=== PATIENT | female | born 1990 | race Caucasian/White ===

== ENCOUNTER 2022-04-25 09:18 | Emergency (ER) | payer BC, SELFPAY ==
[2022-04-25 10:05] VITALS: BP 125/81; PULSE 74; RESP 20; TEMP 36.4; O2SAT 98; BMI 29.7
--- NOTE | 2022-04-25 10:35 | EXP.UTC ---
Discharge Plan Disposition Patient Disposition: Home, Self-Care Condition: Good Prescriptions Prescriptions: New amoxicillin 500 mg capsule 500 mg PO TID 10 Days Qty: 30 0RF Referrals Follow up/Referrals: Provider,Referral, MD [Primary Care Provider] - See instructions Activity Restrictions/Add. Instructions Additional Instructions/Restrictions: Take medication as prescribed Over the counter Motrin and/or Tylenol may help with fever and pain Follow up with your Family Doctor if no improvement or any worsening of symptoms Straight to ER if any life threatening symptoms Clinical Impressions Clinical Impression: Otitis media Stand Alone Forms Stand Alone Forms: Work/School Release Instructions Patient Instructions: Middle Ear Infection, Amoxicillin Discharge ED Provider: Billie Garzon [facility] General Stated complaint: Rt ear pain, congestion, cough Mode of Arrival: Ambulatory Source of Information: Patient Limitations: No Limitations Time Seen by Provider: 04/25/22 10:35 Description of Symptoms (Recalled from Triage Doc. by RN): PATIENT C/O COUGH SINCE LAST WEEK, CONGESTION AND RIGHT EAR PAIN SINCE THIS MORNING HEENT Symptoms (Recalled from RN notes): Yes Resp Symptoms (Recalled from RN notes): Yes Skin Symptoms (Recalled from RN notes): No MS Symptoms (Recalled from RN notes): No Functional Status (Recalled from RN notes): WNL History of Present Illness Provider Complaint: Mother state that she started last week with cough, nasal congestion and she has been having pain in her right ear for the last couple of days that is worse this morning States that her ear was hurting bad so she came in to get it checked Related Data Previous Rx's Medication Instructions Recorded amoxicillin 500 mg capsule 500 mg PO TID 10 days #30 caps 04/25/22 Allergies Allergy/AdvReac Type Severity Reaction Status Date / Time NO KNOWN ALLERGIES Allergy Uncoded 01/27/17 15:09 Worker's Comp Is this a Worker's Comp case?: No [facility] Disclaimer: The information contained in this section may have been updated after the patient was seen, as this information can be updated by other users. Social History Smoking Status: Unknown if ever smoked alcohol intake: never current occupational status: other Travel in the last 8 weeks: None ROS Obtained: Yes All systems reviewed & no additional complaints except as documented and Yes Systems reviewed as appropriate & no additional complaints except as documented Constitutional Constitutional: Reports system reviewed and no additional complaints, except as documented and Reports as per HPI ENT Ears, Nose, Mouth, and Throat: Reports system reviewed and no additional complaints, except as documented, Reports as per HPI, Reports otalgia and Reports nasal congestion Cardiovascular Cardiovascular: Reports system reviewed and no additional complaints, except as documented and Reports as per HPI Respiratory Respiratory: Reports system reviewed and no additional complaints, except as documented, Reports as per HPI and Reports cough Gastrointestinal Gastrointestingal: Reports system reviewed and no additional complaints, except as documented and as per HPI Physical Exam General General appearance: alert and in no apparent distress Expanded ENT Exam TM/Canal exam: Right TM: erythema and bulging Respiratory Respiratory exam: Present normal lung sounds bilaterally; Absent respiratory distress or wheezes Cardiovascular Cardiovascular exam: Present regular rate, normal rhythm and normal heart sounds Abdominal Exam Abdominal exam: Present soft and normal bowel sounds; Absent distention or tenderness Neurological Exam Neurological exam: Present alert, oriented X3 and normal gait Medical Decision Making Jose Martin Inquiry Pt receiving controlled substance: No Jose Martin was queried for this patient: No Vital Signs: 04/25/22 10:05 Temperature 97.5 F L Temperature Source Oral
[2022-04-25 10:51] VITALS: BP 125/81; PULSE 74; RESP 20; TEMP 36.4; O2SAT 98
== END 2022-04-25 11:01 | disposition home or self-care (01) ==
PROVIDERS: Emergency Provider Nurse Practitioner
DX: H66.91 Otitis media, unspecified, right ear (principal); R05.1 Acute cough
CPT/HCPCS: 99212; 99214; G0463

== ENCOUNTER → 2022-11-12 12:00 | Outpatient (CLI) | payer BC, SELFPAY ==
[2022-11-12 18:16] LABS: Microscopic, Urine URINE MICROSCOPIC (MICROSCOPIC)
[2022-11-12 18:33] LABS: Basophils % 0.4 % (0.1-2.0); Eosinophils # 0.3 K/mm3 (0.0-0.4); Eosinophils % 2.8 % (0.1-12.0); Hematocrit 42.6 % (37.0-47.0); Hemoglobin 13.5 g/dL (12.2-16.2); Lymphocytes # 2.4 K/mm3 (0.7-4.5); Lymphocytes % 25.7 % (10-50); Mean Corpuscular HGB Conc 31.7 g/dL (31.8-35.4); Mean Corpuscular Volume 88.1 fl (81-99); Mean Platelet Volume 8.5 fl (7.4-10.4); Monocytes # 0.3 K/mm3 (0.1-1.0); Monocytes % 3.4 % (1.7-9.3); Neutrophils # 6.3 K/mm3 (1.8-7.8); Neutrophils % 67.7 % (37.0-80.0); Platelet Count 501 K/mm3 (142-424); Red Blood Count 4.83 M/mm3 (4.20-5.40); Red Cell Distribution Width 13.3 % (11.5-17.5); White Blood Count 9.4 K/mm3 (4.8-10.8)
[2022-11-12 18:49] LABS: Appearance,Urine CLEAR (Clear); Bilirubin,Urine Negative (Negative); Blood, Urine TRACE-I (Negative); Color,Urine YELLOW (Yellow); Glucose,Urine (UA) Negative (Negative); Ketones,Urine Negative (Negative); Leukocyte Esterase,Urine TRACE (Negative); Nitrate,Urine Negative (Negative); Protein,Urine Negative (Negative); Urobilinogen,Urine 0.2 EU/dl (0.2)
[2022-11-12 18:55] LABS: Alanine Aminotransferase 17 U/L (12-78); Albumin Level 4.1 g/dl (3.5-5.0); Albumin/Globulin Ratio 1.3 (1.1-1.8); Alkaline Phosphatase 65 U/L (38-126); Anion Gap 13.4 mEq/L (5-15); Aspartate Amino Transferase 26 U/L (14-36); Bilirubin,Total 0.2 mg/dl (0.2-1.3); Blood Urea Nitrogen 5 mg/dl (7-17); Calcium 9.3 mg/dl (8.4-10.2); Carbon Dioxide 28 mmol/L (22.0-30.0); Chloride 104 mmol/L (98-107); Cholesterol 186 mg/dl (140-200); Estimated Glomerular Filt Rate 117 ml/min (>60); GFR (African American) 142 ML/MIN (>60); Globulin 3.2 g/dL (1.3-3.2); Glucose 109 mg/dl (74-100); HDL Cholesterol 61 mg/dl (40-60); Potassium 4.4 mmoL/L (3.5-5.1); Sodium 141 mmol/L (136-145); Total Protein,Serum 7.3 g/dl (6.3-8.2); Triglycerides 114 mg/dl (30-150); VLDL Cholesterol 23 mg/dL (0-40)
[2022-11-12 19:02] LABS: Squamous Epithelial Cell,Urine Occasional #/hpf (0-5)
[2022-11-12 19:02] LABS: Erythrocyte Sedimentation Rate 21 mm/hr (0-20)
[2022-11-12 19:07] LABS: Direct LDL Cholesterol 104.95 mg/dL (100-129)
[2022-11-12 19:09] LABS: Free T4 (Free Thyroxine) 1.08 ng/dl (0.78-2.19)
[2022-11-12 19:11] LABS: 25-OH Vitamin D, Total 25.7 ng/mL (30-100)
[2022-11-12 19:24] LABS: Thyroid Stimulating Hormone 1.41 uIU/mL (0.465-4.68)
[2022-11-12 19:43] LABS: Vitamin B12 197 pg/mL (239-931)
[2022-11-15 00:07] LABS: Neisseria gonorrhoeae, NAA Negative (Negative)
[2022-11-18 12:44] LABS: Immunoglobulin E, Total 38
[2022-11-18 12:45] LABS: D001-IgE D pteronyssinus <0.10; D002-IgE D farinae <0.10; E001-IgE Cat Dander 2.86; E005-IgE Dog Dander 0.13; G002-IgE Bermuda Grass 1.71
[2022-11-18 12:46] LABS: I006-IgE Cockroach, German <0.10; M001-IgE Penicillium chrysogen <0.10; M002-IgE Cladosporium herbarum <0.10; M003-IgE Aspergillus fumigatus <0.10; M006-IgE Alternaria alternata <0.10
[2022-11-18 12:47] LABS: T001-IgE Maple/Box Elder 0.29; T006-IgE Cedar, Mountain 0.13
[2022-11-18 12:48] LABS: T007-IgE Oak, White 0.35; T008-IgE Elm, American 0.38; T010-IgE Walnut 0.82
[2022-11-18 12:49] LABS: T014-IgE Cottonwood 0.25; T022-IgE Pecan, Hickory 1.17
[2022-11-18 12:50] LABS: W001-IgE Ragweed, Short 8.72; W011-IgE Thistle, Russian 0.47; W014-IgE Pigweed, Common 0.39
[2022-11-18 12:51] LABS: E072-IgE Mouse Urine <0.10
[2022-11-20 08:07] LABS: C-Reactive Protein 18.8 mg/L (0-4)
== END ==
LOC: LAB.DROPOF 11-13 01:53
PROVIDERS: PCP Nurse Practitioner Family; Visit Provider Nurse Practitioner Family
DX: Z00.00 Encounter for general adult medical examination without abnormal findings (principal); R53.83 Other fatigue; Z13.1 Encounter for screening for diabetes mellitus; Z11.3 Encounter for screening for infections with a predominantly sexual mode of transmission; Z13.220 Encounter for screening for lipoid disorders; R07.81 Pleurodynia; J30.2 Other seasonal allergic rhinitis; E55.9 Vitamin D deficiency, unspecified; Z91.09 Other allergy status, other than to drugs and biological substances; Z79.899 Other long term (current) drug therapy
CPT/HCPCS: 80053; 80061; 81001; 82306; 82607; 82785; 83036; 84439; 84443; 85025; 85651; 86003; 86140; 87086; 87491; 87591

== ENCOUNTER → 2022-11-13 09:00 | Outpatient (CLI) | payer BC, SELFPAY ==
--- NOTE | 2022-11-13 09:05 | XR_ITS ---
FINAL REPORT CLINICAL HISTORY: hx of scoliosis as a child COMPARISON: None FINDINGS: SCOLIOSIS EVALUATION 3 views of the thoracolumbar spine were obtained. There is 10 degrees of levoscoliosis centered at L1. There are no vertebral anomalies. IMPRESSION: Thoracolumbar scoliosis as above. Reviewed, Interpreted and Dictated by Radames Jimenez III, MD Transcribed by Nola Nina Authenticated and [facility]
--- NOTE | 2022-11-13 09:05 | XR_ITS ---
FINAL REPORT CLINICAL HISTORY: right rib pain COMPARISON: None FINDINGS: Two views of the chest were obtained. The heart size and pulmonary vascularity are within normal limits. The mediastinum is normal. No acute pulmonary abnormality is identified. There is no pneumothorax. The bony thorax is intact. IMPRESSION: No active cardiopulmonary disease. Reviewed, Interpreted and Dictated by Radames Jimenez III, MD Transcribed by Nola Nina Authenticated and [facility]
== END ==
LOC: LAB 09:01
PROVIDERS: PCP Nurse Practitioner Family; Visit Provider Nurse Practitioner Family
DX: R07.81 Pleurodynia (principal); M41.9 Scoliosis, unspecified
CPT/HCPCS: 71046; 72081

== ENCOUNTER → 2022-11-27 09:56 | Outpatient (CLI) | payer BC, SELFPAY ==
--- NOTE | 2022-11-27 09:59 | XR_ITS ---
FINAL REPORT CLINICAL HISTORY: Left wrist pain COMPARISON: None FINDINGS: LEFT WRIST Three views demonstrate no acute fracture or dislocation. The visualized joint spaces are normally aligned. The soft tissues are unremarkable. No evidence of bony erosions are seen. Bone mineralization is unremarkable. IMPRESSION: No acute bony abnormality. Reviewed, Interpreted and Dictated by Radames Jimenez III, MD Transcribed by Bhargavi Fenton Authenticated and [facility]
--- NOTE | 2022-11-27 09:59 | XR_ITS ---
FINAL REPORT CLINICAL HISTORY: right wrist pain COMPARISON: None FINDINGS: RIGHT WRIST Three views demonstrate no acute fracture or dislocation. The visualized joint spaces are normally aligned. The soft tissues are unremarkable. No bony erosions are identified. Bony mineralization is unremarkable. IMPRESSION: No acute bony abnormality. Reviewed, Interpreted and Dictated by Radames Jimenez III, MD Transcribed by Bhargavi Fenton Authenticated and [facility]
--- NOTE | 2022-11-27 10:17 | XR_ITS ---
FINAL REPORT CLINICAL HISTORY: pain COMPARISON: None FINDINGS: RIGHT HAND: 3 views of the right hand were obtained. There is no acute fracture or dislocation. Visualized joint spaces are normally aligned. Soft tissues are unremarkable. No bony erosions are identified. Bone mineralization is unremarkable. IMPRESSION: No acute bony abnormality. Reviewed, Interpreted and Dictated by Radames Jimenez III, MD Transcribed by Bhargavi Fenton Authenticated and [facility]
--- NOTE | 2022-11-27 10:17 | XR_ITS ---
FINAL REPORT CLINICAL HISTORY: pain COMPARISON: None FINDINGS: LEFT HAND: 3 views of the left hand were obtained. There is no acute fracture or dislocation. Visualized joint spaces are normally aligned. Soft tissues are unremarkable. No bony erosions are identified. Bone mineralization is unremarkable. IMPRESSION: No acute bony abnormality. Reviewed, Interpreted and Dictated by Radames Jimenez III, MD Transcribed by Bhargavi Fenton Authenticated and [facility]
== END ==
LOC: RAD 09:57
PROVIDERS: PCP Nurse Practitioner Family; Visit Provider Orthopaedic Surgery
DX: M25.531 Pain in right wrist (principal); M25.532 Pain in left wrist; M79.641 Pain in right hand; M79.642 Pain in left hand
CPT/HCPCS: 73110; 73130

== ENCOUNTER → 2022-12-17 10:47 | Outpatient (CLI) | payer BC, SELFPAY ==
[2022-12-17 11:10] LABS: Basophils # 0.1 K/mm3 (0-0.2); Basophils % 0.7 % (0.1-2.0); Eosinophils # 0.3 K/mm3 (0.0-0.4); Eosinophils % 3.5 % (0.1-12.0); Hematocrit 41.4 % (37.0-47.0); Hemoglobin 13.7 g/dL (12.2-16.2); Lymphocytes # 1.7 K/mm3 (0.7-4.5); Lymphocytes % 17.7 % (10-50); Mean Corpuscular HGB Conc 33.1 g/dL (31.8-35.4); Mean Corpuscular Hemoglobin 29.4 pg (27.0-31.2); Mean Corpuscular Volume 88.9 fl (81-99); Mean Platelet Volume 7.2 fl (7.4-10.4); Monocytes # 0.2 K/mm3 (0.1-1.0); Neutrophils # 7.3 K/mm3 (1.8-7.8); Neutrophils % 76.1 % (37.0-80.0); Platelet Count 412 K/mm3 (142-424); Red Blood Count 4.66 M/mm3 (4.20-5.40); Red Cell Distribution Width 13.1 % (11.5-17.5); White Blood Count 9.6 K/mm3 (4.8-10.8)
[2022-12-17 11:48] LABS: Alanine Aminotransferase 15 U/L (12-78); Albumin Level 3.9 g/dl (3.5-5.0); Albumin/Globulin Ratio 1.3 (1.1-1.8); Alkaline Phosphatase 71 U/L (38-126); Anion Gap 11.3 mEq/L (5-15); Aspartate Amino Transferase 23 U/L (14-36); Blood Urea Nitrogen 6 mg/dl (7-17); Calcium 8.9 mg/dl (8.4-10.2); Carbon Dioxide 27 mmol/L (22.0-30.0); Chloride 103 mmol/L (98-107); Estimated Glomerular Filt Rate 98 ml/min (>60); GFR (African American) 119 ML/MIN (>60); Glucose 97 mg/dl (74-100); Potassium 4.3 mmoL/L (3.5-5.1); Sodium 137 mmol/L (136-145); Total Protein,Serum 6.9 g/dl (6.3-8.2)
[2022-12-17 12:03] LABS: Bilirubin,Total < 0.1 mg/dl (0.2-1.3)
[2022-12-17 12:33] LABS: Iron 89 ug/dL (37-170)
[2022-12-17 12:42] LABS: Total Iron Binding Capacity 506 ug/dL (265-497)
[2022-12-17 12:54] LABS: Vitamin B12 277 pg/mL (239-931)
[2022-12-17 13:10] LABS: Ferritin 13.2 ng/ml (6.24-137)
[2022-12-22 09:38] LABS: Antinuclear Antibodies (ANA) Negative
== END ==
LOC: LAB 10:48
PROVIDERS: PCP Nurse Practitioner Family; Visit Provider Internal Medicine Medical Oncology
DX: D75.839 Thrombocytosis, unspecified (principal)
CPT/HCPCS: 36415; 80053; 82607; 82728; 82746; 83540; 83550; 85025; 86038

== ENCOUNTER 2023-03-17 20:30 | Outpatient (CLI) | payer BC, SELFPAY | END 2023-03-17 23:59 | LOC: LAB.DROPOF 20:31 | PROVIDERS: PCP Student in an Organized Health Care Education/Training Program; Visit Provider Student in an Organized Health Care Education/Training Program | DX: R05.9 Cough, unspecified (principal); J02.9 Acute pharyngitis, unspecified | CPT/HCPCS: 87070 ==

== ENCOUNTER 2023-06-29 11:29 | Outpatient (CLI) | payer BC, SELFPAY | END 2023-06-29 23:59 | disposition home or self-care (01) | LOC: LAB.DROPOF 06-30 11:29 | PROVIDERS: PCP Nurse Practitioner Family; Visit Provider Nurse Practitioner Family | DX: J02.9 Acute pharyngitis, unspecified (principal) | CPT/HCPCS: 87070 ==

== ENCOUNTER 2023-08-04 14:00 | Outpatient (CLI) | payer BC, SELFPAY ==
[2023-08-04 13:59] LABS: Basophils # 0.1 K/mm3 (0-0.2); Basophils % 0.7 % (0.1-2.0); Eosinophils # 0.2 K/mm3 (0.0-0.4); Eosinophils % 1.8 % (0.1-12.0); Hematocrit 39.8 % (37.0-47.0); Hemoglobin 13.1 g/dL (12.2-16.2); Lymphocytes # 2.2 K/mm3 (0.7-4.5); Lymphocytes % 26.9 % (10-50); Mean Corpuscular HGB Conc 32.9 g/dL (31.8-35.4); Mean Corpuscular Hemoglobin 29.1 pg (27.0-31.2); Mean Corpuscular Volume 88.4 fl (81-99); Mean Platelet Volume 8.9 fl (7.4-10.4); Monocytes # 0.3 K/mm3 (0.1-1.0); Monocytes % 3.6 % (1.7-9.3); Neutrophils # 5.4 K/mm3 (1.8-7.8); Platelet Count 497 K/mm3 (142-424); Red Cell Distribution Width 13.8 % (11.5-17.5)
--- NOTE | 2023-08-04 14:10 | XR_ITS ---
FINAL REPORT CLINICAL HISTORY: Shortness of breath COMPARISON: 12/25/2022 FINDINGS: No acute pulmonary density is evident. There is no evidence of effusion or other pleural disease. The mediastinum has a normal appearance. The cardiac silhouette is unremarkable. IMPRESSION: Unremarkable chest exam. Reviewed, Interpreted and Dictated by Deena Guerrero MD Transcribed by Nola Nina Authenticated and [facility]
[2023-08-04 14:32] LABS: Anion Gap 15.7 mEq/L (5-15); Blood Urea Nitrogen 10 mg/dl (7-17); Calcium 9.2 mg/dl (8.4-10.2); Carbon Dioxide 26 mmol/L (22.0-30.0); Chloride 100 mmol/L (98-107); Chol/HDL Ratio 2.8 (1-3.5); Cholesterol 218 mg/dl (140-200); Estimated Glomerular Filt Rate 98 ml/min (>60); GFR (African American) 118 ML/MIN (>60); Glucose 76 mg/dl (74-100); HDL Cholesterol 77 mg/dl (40-60); Potassium 4.7 mmoL/L (3.5-5.1); Sodium 137 mmol/L (136-145); Triglycerides 158 mg/dl (30-150); VLDL Cholesterol 32 mg/dL (0-40)
[2023-08-04 14:44] LABS: Direct LDL Cholesterol 115.53 mg/dL (100-129)
== END 2023-08-04 23:59 | disposition home or self-care (01) ==
LOC: RAD 14:01
PROVIDERS: PCP Nurse Practitioner Family; Visit Provider Nurse Practitioner Family
DX: Z00.8 Encounter for other general examination (principal); M45.9 Ankylosing spondylitis of unspecified sites in spine; R06.09 Other forms of dyspnea; R00.2 Palpitations
CPT/HCPCS: 71046; 80048; 80061; 85025; 86140; 93270

== ENCOUNTER 2023-08-17 07:40 | Outpatient (CLI) | payer BC, SELFPAY ==
[2023-08-17] MEDS: ALBUTEROL 0.083% 2.5 MG/3 ML NEB IH (08:05)
--- NOTE | 2023-08-17 08:05 | PC.NURSE ---
Pre and Post Spirometry completed on Pt with no complications. Albuterol 0.083% given via HHN, per written protocol, Pt tolerated tx well.
== END 2023-08-17 23:59 | disposition home or self-care (01) ==
LOC: RT 07:41
PROVIDERS: PCP Nurse Practitioner Family; Visit Provider Nurse Practitioner Family
DX: R06.09 Other forms of dyspnea (principal)
CPT/HCPCS: 94060; 94726; 94729; J7613

== ENCOUNTER 2023-08-19 07:42 | Outpatient (CLI) | payer BC, SELFPAY ==
[2023-08-19 09:50] LABS: Free Thyroxine Index 3.8 ug/dL (5.93-13.13); Triiodothryronine (T3) Uptake 25 % (23.5-40.5)
[2023-08-19 10:04] LABS: Thyroid Stimulating Hormone 1.72 uIU/mL (0.465-4.68)
--- NOTE | 2023-08-19 13:36 | CA_ITS ---
APPROVED REPORT EXAM: Comprehensive 2D, Doppler, and color-flow Echocardiogram Cocoa Bean Cleaner: Pepper Clark, WES, RVS Ht: 5 ft 5 in Wt: 190lbs BSA: 1.94 BP: 120/76 mmHg Indications: pALPITATIONS, ra, sob 2D Dimensions Left Atrium 2.61 cm F: 2.7 - 3.8 M-Mode Dimensions RVDd 2.79 cm (0.9-2.6) LA Diam 3.19 cm (1.9-4.0) LVDd 4.61 cm (3.5-5.7) LVDs 3.11 cm (3.5-5.7) IVSd 0.75 cm (0.6-1.1) PWd 0.79 cm (0.6-1.1) EF (Teich) 60.90% EPSs 0.65 cm FS 32.50% EDV (Teich) 97.80 mL TAPSE 1.69 (<1.7) ESV (Teich) 38.20 mL LV Diastology E Decel Time 147 (160-240 msec) E/A Ratio 1.47 MED A' 12.20 cm/s LAT A' 10.90 cm/s Aortic Valve JAKOB Index 1.15 cm2/m2 AoV Peak Kam. 120.0 (50-130 cm/s) AO Peak GR. 5.70 mmHg AO Mean GR. 2.80 (<5 mmHg) AO VTI 21.4 (18-25 cm) JAKOB (VTI) 2.28 (2.5-4.5 cm2) Mitral Valve MV A Velocity 46.0 (40-130 cm/s) E/A Ratio 1.47 Pulmonary Valve PV Peak Velocity 87.0 (50-150 cm/s) Left Ventricle The left ventricle is normal size. The left ventricular systolic function is normal. The left ventricular ejection fraction is within the normal range. There is normal left ventricular wall thickness. There is normal LV segmental wall motion. The left ventricular diastolic function is normal. LVEF is 60%. Right Ventricle The right ventricle is normal size. The right ventricular systolic function is normal. Atria The left atrium size is normal. The right atrium size is normal. The interatrial septum is not well-visualized. Aortic Valve The aortic valve is normal in structure. There is no aortic valvular stenosis. No aortic regurgitation is present. Mitral Valve The mitral valve is normal in structure. No evidence of mitral valve stenosis. There is no mitral valve regurgitation noted. Tricuspid Valve The tricuspid valve leaflets are thin and pliable. Trace tricuspid regurgitation. There is insufficient TR jet to estimate RVSP. Pulmonic Valve The pulmonary valve is normal in structure. Trace pulmonic regurgitation. Great Vessels The aortic root is normal in size. The ascending aorta is normal in size. IVC is normal in size and collapses >50% with inspiration. Pericardium There is no pericardial effusion. Other Information Study Quality: Adequate Conclusion Normal biventricular systolic function. No significant valvular stenosis or regurgitation. Electronically signed by : Anat Toussaint MD 08/22/2023 23:20:52
[2023-08-24 10:09] LABS: Dopamine, Plasma < 30 pg/mL (0-48); Epinephrine, Plasma < 15 pg/mL (0-62); Norepinephrine, Plasma 354 pg/mL (0-874)
== END 2023-08-19 23:59 | disposition home or self-care (01) ==
LOC: RT 07:45
PROVIDERS: Physician Assistant; PCP Nurse Practitioner Family; Visit Provider Nurse Practitioner Family
DX: R00.2 Palpitations (principal); R07.89 Other chest pain; R06.09 Other forms of dyspnea; R00.0 Tachycardia, unspecified
CPT/HCPCS: 36415; 82384; 82533; 83520; 84436; 84443; 84479; 93306

== ENCOUNTER 2023-08-24 06:40 | Outpatient (CLI) | payer BC, SELFPAY ==
--- NOTE | 2023-08-24 | CA_ITS ---
APPROVED REPORT Exam: Exercise Treadmill Technologist: Julianna Uriostegui, Ht: 5 ft 6 in Wt: 185 lbs BSA: 1.93 m2 HR: 85 bpm BP: 129/84 mmHg Rhythm: NSR Medical History Medications: Albuterol,,,,, Vit D3,,,,, DulOXETINE,,,,, Vit B12,,,,, ADALimumab,,,,, Magnesium GLycinate,,,,, Tri lo sprintec,,,,, Stress Test Details Test: LEXISCAN HR Resting HR: 90 bpm Max Heart Rate (APMHR): 189 bpm Max HR Achieved: 160 bpm Target HR (85% APMHR): 161 bpm % of APMHR: 85 Recovery HR: 112 bpm BP Resting BP: 129.0/84.0 mmHg Max BP: 137.0/83.0 mmHg Recovery BP: 131.0/79.0 mmHg ECG Resting ECG: NSR Stress ECG: No significant ST changes Arrhythmia: None Clinical Exercise duration: 04:04 min Highest Stage Achieved: Stress ECG Conclusion During lexiscan pt experinced chest pressure, dizziness, and nausea. No arrhytmias noted. ST changes: None Conclusion: Unremarkable Lexiscan stress test. Myoview images reported separately. Test Summary REST . . . . . . . Sitting REST 07:16 . . 90 . 129/ 84 . . Stage 1 01:00 . . 140 . . . . Stage 2 01:00 . . 159 . . . . Stage 3 01:00 . . 152 . 137/ 83 . . Stage 4 01:00 . . 147 . 136/ 79 . . Stage 4 01:04 . . 148 . 136/ 79 . Stop exercise at 04:04 RECOVERY 01:00 . . 121 . . . . RECOVERY 02:00 . . 111 . 124/ 77 . . RECOVERY 02:24 . . 111 . 124/ 77 . . Electronically signed by : Anat Toussaint MD 08/26/2023 03:36:39
--- NOTE | 2023-08-24 06:47 | NM_ITS ---
APPROVED REPORT Exam: Nuclear Stress Test Indication: Chest pain, SOB, HTN, Family history Patient Location: Outpatient Stress Tech: Julianna Uriostegui BC Tech:Blanca Rosado ARRT, RT (R)(N) Ht: 5 ft 6 in Wt: 185 lbs Bra Size: 40D HR: 90 bpm BP: 129/84 mmHg BSA: 1.93 m2 TID: 1.07 BMI: 29.8 History: Chest pain, SOB, HTN, Family history Procedure: Patient received 0.4 mg of intravenous Lexiscan, resting heart rate 90 bpm, resting blood pressure 129/84 mmHg, with Lexiscan maximum heart rate achieved was 160 bpm which is % of the maximum predicted heart rate and blood pressure was 137/83 mmHg. With Lexiscan, patient denied any complaint of chest pain. Cardiac Stress and Resting SPECT Images: Cardiac Stress and Resting SPECT images were obtained using technetium 99m Myoview 31.7 mCi stress and 10.86 mCi at rest. Resting and stress imaging in supine and prone positions demonstrate no evidence of fixed or reversible perfusion defects. Gated imaging demonstrates normal global and regional LV systolic function. LVEF is calculated at 60%. Conclusion: No evidence of fixed or reversible perfusion defects. Gated imaging demonstrates normal global and regional LV systolic function. LVEF is calculated at 60%. Electronically signed by : Anat Toussaint MD 08/26/2023 03:37:32
[2023-08-24] MEDS: REGADENOSON 0.4MG/5ML SYRINGE 0.4 MG IV (08:31)
[2023-08-24] MEDS: SODIUM CHLORIDE 0.9% 10ML SYR (RAD ONLY) 10 ML IV ×2 (08:31)
[2023-08-24] MEDS: ISOTOPE MYOVIEW (PER STUDY) 1 DOSE IV (08:31)
== END 2023-08-24 23:59 | disposition home or self-care (01) ==
LOC: RAD 06:42
PROVIDERS: PCP Nurse Practitioner Family; Visit Provider Physician Assistant
DX: R00.0 Tachycardia, unspecified (principal); R07.89 Other chest pain
CPT/HCPCS: 78452; 93017; 93018; A9502; J2785

== ENCOUNTER 2023-09-07 14:08 | Outpatient (CLI) | payer BC, SELFPAY ==
--- NOTE | 2023-09-07 14:11 | CA_ITS ---
FINAL REPORT CLINICAL HISTORY: BILATERAL LEG PAIN AND EDEMA,ELEVATED PLATELETS COMPARISON: None FINDINGS: DUPLEX VENOUS SONOGRAPHY OF THE BILATERAL LOWER EXTREMITIES Multiple transverse and longitudinal scans were performed of the femoropopliteal deep venous systems, with augmentation and compression maneuvers. Normal phasic flow was noted in the visualized deep venous systems. No intraluminal increased echogenicity is noted to suggest thrombus. There is normal compression and augmentation of the venous structures. No abnormal venous collaterals are seen. IMPRESSION: No evidence of deep venous thrombosis of the bilateral lower extremities. Reviewed, Interpreted and Dictated by Shanelle Manuel MD Transcribed by Nola Nina Authenticated and [facility]
== END 2023-09-07 23:59 | disposition home or self-care (01) ==
LOC: RT 14:09
PROVIDERS: PCP Nurse Practitioner Family; Visit Provider Physician Assistant
DX: M79.604 Pain in right leg (principal); M79.605 Pain in left leg; R79.89 Other specified abnormal findings of blood chemistry; R07.89 Other chest pain; R00.0 Tachycardia, unspecified; R06.09 Other forms of dyspnea; R53.82 Chronic fatigue, unspecified
CPT/HCPCS: 93970

== ENCOUNTER 2023-10-16 07:44 | Outpatient (CLI) | payer BC, SELFPAY ==
[2023-10-16 09:30] LABS: Free T4 (Free Thyroxine) 0.99 ng/dl (0.78-2.19)
[2023-10-16 09:44] LABS: Thyroid Stimulating Hormone 0.78 uIU/mL (0.465-4.68)
[2023-10-17 13:17] LABS: Thyroid Peroxidase Antibodies <9 IU/mL (0-34); Triiodothyronine (T3) Free 3.3 pg/mL (2.0-4.4)
[2023-10-27 10:06] LABS: Miscellaneous Test SCANNED IMAGE
== END 2023-10-16 23:59 | disposition home or self-care (01) ==
PROVIDERS: PCP Nurse Practitioner Family
DX: R94.6 Abnormal results of thyroid function studies (principal)
CPT/HCPCS: 36415; 84439; 84443; 84481; 86376

== ENCOUNTER 2023-11-10 08:00 | Outpatient (RCR) | payer BC, SELFPAY ==
--- NOTE | 2023-08-28 07:31 | HMH.PTOPEV ---
PT Outpatient Evaluation Rehab PT Outpatient Evaluation Start: 08/27/23 13:42 Freq: Status: Active Protocol: Document 08/27/23 13:42 JEFF (Rec: 08/27/23 15:24 JEFF [email or web address]) E-signed By Blanca Khoury, PT Outpatient Therapy Subjective History Subjective History This is an initial physical therapy evaluation for 33 y/o, Sil Humphrey, who presents with referral for back and neck pain. Pt reports she has pain in multiple joints and entire back d/t having ankylosing spondylitis ( diagnosed in Jan 2023). Pt reports she has not had any MRI's d/t insurance wanting to try physical therapy first. Pt reports she also has a history of scoliosis as well. Pt reports B numbness and tingling of UEs and LEs ( intermittent when laying flat) . Pt reports standing still for long periods, walking long distances, and lifting heavy aggrevate her pain the most. Pt reports her LBP and B hip pain is the most debilitating out of her pain complaints. Pt reports she has been getting weaker and now ambulates with a SPC d/t pain. Pt does report having some episodes of dizziness, blurred vision, and nausea (Currently seeing a linking machine operator and has a follow up next week). Pt recently had a stress test performed with results stating Unremarkable Lexisc stress test. Pt reports she has a follow-up with her Draw Frame Runner in [place] in November. Pt reports she does have night pain and her sleep is negatively impacted. PMH: Thoracolumbar scoliosis of 10 degrees on 11/13/2022, ankylosing spondylitis, fibromyalgia Medications : humira, duloxetine, B12, D3, magnesium , control pills, allergy pills New diagnosis of cancer in past 12 No months? Chief Complaint Pain,Stiff,Paresthesia, Weakness Symptom Type Ache,Dull,Numbness,Tingling, Shooting Symptoms Relieved By Heat,Ice Symptoms Aggravated By Standing,Physical Activity, Twisting,Walking,Lifting Prior Functional Limitations None Current Functional Limitations Reaching,Lifting,Housework, Dressing,Desk Work/Reading, Driving,Sleeping,Standing, Sitting,Squatting,Recreation Activity,Walking,Stairs, Balance Symptom Description Constant but Variable Level of pain today (0-10) 6 Pain scale - at its best (0-10) 4 Pain scale - at its worst (0-10) 10 Cervical Eval Palpation Cervical Muscles R Cervical Paraspinal,L Cervical Paraspinal,R Suboccipital,L Suboccipital,R SCM,L SCM Cervical/Thoracic Palpation Findings Tenderness Posture Head/C-Spine Posture Sitting Position Extended Flexibility Deficits Upper Trapezius Muscle Length (R) Mild Tightness,(L) Mild Tightness Levaetor Scapulae Muscle Length (R) Mild Tightness,(L) Mild Tightness AROM Cervical Spine Extension Active Range of 80 Motion (degrees) Cervical Spine Flexion Active Range of 20 Motion (degrees) Cervical Spine Right Lateral Flexion 35, painful Active Range of Motion (degrees) Cervical Spine Left Lateral Flexion 33 Active Range of Motion (degrees) Cervical Spine Right Rotation Active 70 Range of Motion (degrees) Cervical Spine Left Rotation Active 70 Range of Motion (degrees) MMT Bilateral Deltoid (C5) 4- Good- Biceps Brachii Strength Grade 4- Good- Wrist Extension Strength Grade 4- Good- Triceps Brachii Strength Grade 4- Good- Special Test C-Spine Foraminal Compression (Spurling) Positive Left,Positive Right Test Lumbopelvic Eval Posture Thoracic Spine Posture Standing Position Fixed Scoliosis on (L), Increased Kyphosis Lumbar Spine Posture Standing Position Neutral Assistive device Assistive Devices Straight Cane Gait Observation General Gait Pattern Observation No Deviations/Normal Palapation tenderness bilateral thoracic spinal tenderness Yes: 1/4 lumbar spinal tenderness Yes: 1/4 paraspinal tenderness Yes: 1/4 Accessory Movement T-spine Vertebrae Accessory Movements Central P/A [place] that Elicit Symptoms L4 bilateral L5 bilateral S1 bilateral Range of Motion Lumbar Spine Active Flexion Range of 60, painful Motion (degrees) Lumbar Spine Active Extension Range of WNL, 25 Motion (degrees) Left Lumbar Spine Lateral Flexion Active 35 Range of Motion (degrees) Right Lumbar Spine Lateral Flexion 28, painful Active Range of Motion (degrees) Lumbar Spine ROM Limitations Pain Manual Muscle Test Bilateral Knee Extension Strength Grade 4- Good- Knee Flexion Strength Grade 4- Good- Hip Flexion Strength Grade 4- Good- Hip Abduction Strength Grade 4- Good- Hip Adduction Strength Grade 4- Good- Special Tests Lumbar Spine Screen Positive Hip Benji (RAFAEL) Test Positive Left,Positive Right Hip Piriformis Test Positive Left,Positive Right Sciatic Nerve Tension Test Negative Left,Negative Right Crossed Straight Leg Raise Test Negative Left,Negative Right Hip Mimi's Test Negative Left,Negative Right Sacroiliac Joint Compression Test Positive Left,Positive Right Sacroiliac Joint Distraction Test Positive Left,Positive Right Oswestry Index Section 1 Pain Intensity The pain comes and goes and is severe Section 2 Personal Care (Washing,Dresing) increase the pain and I find it necessary to change my way of doing it Section 3 Lifting lifting heavy weights off the floor, but I can manage light to medium Section 4 Walking I cannot walk more than 1/2 mile without increasing pain Section 5 Sitting Pain prevents me from sitting for more than one hour Section 6 Standing I cannot stand more than 10 minutes without increasing pain Section 7 Sleeping Because of my pain, my normal night's sleep is less than 6 hours sleep Section 8 Social Life Pain has restricted my social life and I do not go out often Section 9 Traveling Pain restricts me to short necessary journeys under 30 minutes Section 10 Changing Degreee of Pain My pain is gradually getting worse Score and Risk Level Oswestry Sc 33 Oswestry Risk Level Severe Disability Neck Disability Index Neck Disability Index Section 1: Pain Intensity The pain is fairly severe at the moment Section 2: Personal Care (washing, It is painful to look after dressing, etc.) myself and I am slow and careful Section 3: Lifting Pain prevents me from lifting heavy weights, but I can manage light to Section 4: Reading I can read as much as I want with moderate pain in my neck Section 5: Headaches I have moderate headaches, which come frequently Section 6: Concentration I have a fair degree of difficulty in concentrating when I want to Section 7: Work I cannot do my usual work Section 8: Driving I can drive my car as long as I want with moderate pain in my neck Section 9: Sleeping My sleep is midly disturbed (1 -2 hrs sleepless) Section 10: Recreation I am able to engage in a few of my usual recreation activities because NDI Score 25 Outpatient Therapy Assessment Impairments Problems/Impairmments Palpation Tenderness,Impaired Range of Motion,Impaired Strength,Impaired Endurance, Impaired Transfers,Impaired Walking,Impaired Standing, Impaired Sitting,Impaired Lifting,Impaired Household Care,Impaired Stair Climbing, Impaired Stepping on Uneven Surface,Impaired Bending, Impaired Recreational Activities,Impaired Running, Subjective C/O Pain Prognosis Rehab Potential Good Comment Pt's subjective complaints and objective findings are consistent with her medical diagnoses. PT to treat and refer back to MD to obtain further imaging of spine d/t reports of worsening B extremity weakness and numbness. Clinical Impression Consistent with Diagnosis Yes Short Term Goals Number of Weeks 4 Increase Strength Yes: Improve BLE strength to 4 /5 to improve functional strength. Improve Oswestry Score Yes: Improve by 4 points. Decrease Subjective C/O Pain Yes: At worst pain decrease to 8/10 Patient to be Ind w/ HEP Yes Lcpc Goals Number of Weeks 8 Increase Range of Motion Yes: Lumbar AROM WNL to improve functional tasks. Increase Strength Yes: BLE and BUE 5/5 to maximize functional strength Increase Endurance Yes: Pt will tolerate 10 min of Mod I cardiovascular endurance task. Improve Oswestry Score Yes: Decrease to score reflecting moderate disability . Decrease Subjective C/O Pain Yes: At worst pain decreased to 5/10 to improve QOL. Patient to be Ind w/ Advanced HEP Yes Outpatient Therapy Plan of Care Treatment Plan May Include Therapeutic Exercise Including Home Yes Exercise Program Manual Therapy Techniques Yes Neuromuscular Re-education Yes Therapeutic Activities to Return to Yes Previous Functional/Work Level Gait Training Yes ADL/Self Care Education Yes Dry Needling Yes Thermal Modalities Yes Electrical Stimulation Yes Ultrasound/Phonophoresis Yes Iontophoresis Yes Orthotics/Bracing/Splinting Yes Massage Yes Eval/Re-Eval Yes Aquatic Therapy Yes Frequency Times per week 2x Duration Number of Weeks 6-8 weeks Addendums This patient is a candidate for social No or vocational rehab? Patient/Guardian verbally acknowledges Yes understanding of treatment program and consents to further treatment? Patient/Guardian verbally acknowledges Yes understanding of diagnosis, prognosis and goals for treatment? Eval Complexity PT Charges 00785 - Moderate Complexity Shoulder/Elbow Eval Shoulder Objective Measurements Elbow Objective Measurements PHYSICIAN CERTIFICATION: I certify the specified therapy services for Sil Humphrey are required, authorized, and reviewed every 30 days.
--- NOTE | 2023-10-02 10:43 | HMH.RHREAS ---
Rehab Reassessment Rehab OP Re-assessment Start: 08/27/23 13:42 Freq: Status: Active Protocol: Document 10/02/23 08:27 JEFF (Rec: 10/02/23 08:53 JEFF [id number]) E-signed By Blanca Khoury PT Neck Disability Index Neck Disability Index Section 1: Pain Intensity The pain is moderate at the moment Section 2: Personal Care (washing, It is painful to look after dressing, etc.) myself and I am slow and careful Section 3: Lifting Pain prevents me from lifting heavy weights, but I can manage light to Section 4: Reading I can read as much as I want with moderate pain in my neck Section 5: Headaches I have moderate headaches, which come frequently Section 6: Concentration I have a fair degree of difficulty in concentrating when I want to Section 7: Work I can do most of my usual work , but no more Section 8: Driving I can't drive my car as long as I want because of moderate pain in my Section 9: Sleeping My sleep is moderately disturbed (2-3 hrs. sleepless) Section 10: Recreation I am able to engage in a few of my usual recreation activities because NDI Score 25 Oswestry Index Section 1 Pain Intensity The pain is moderate and does not vary much Section 2 Personal Care (Washing,Dresing) increase the pain and I find it necessary to change my way of doing it Section 3 Lifting lifting heavy weights off the floor, but I can manage light to medium Section 4 Walking I cannot walk more than 1/2 mile without increasing pain Section 5 Sitting Pain prevents me from sitting for more than one hour Section 6 Standing I cannot stand more than 10 minutes without increasing pain Section 7 Sleeping Because of my pain, my normal night's sleep is less than 6 hours sleep Section 8 Social Life Pain has restricted my social life and I do not go out often Section 9 Traveling I get extra pain while traveling which compels me to seek alternate fo Section 10 Changing Degreee of Pain My pain is gradually getting worse Score and Risk Level Oswestry Sc 31 Oswestry Risk Level Severe Disability Rehab Re-assessment Subjective Subjective HEP compliance: Good compliance but reports difficulty with scap squeezes. 24 hour pain average: 7/10 Pain at worst: 9/10 Pt reports she has not been back to her physician and was denied for an MRI. Pt feels like PT is helping with her overall stiffness. I feel less stiff when I done with PT Pt reports overall her LBP is getting worse and her medicine is no longer giving her the relief it once did. Objective Objective Notes BLE MMTs: Hip FLEX = 4/5 Hip ABD = 4/5 Hip ADD = 4/5 Knee FLEX =4/5 Knee EXT = 4/5 Lumbar Flexion: ~75% of normal motion and painful. Lumbar Extension: WNL, non- painful. PRIOM: 31 Severe Disability NDI: 25 Assessment Progress Assessment Progressing as Expected Assessment Notes This is a reassessment for Sil Humphrey who presents to PT for c/o back and neck pain . Since IE, pt has been seen for 3 treatment visits that have consisted of modalities prn, education, and therapeutic exercises focusing on core/BLE strength. Pt with good attendance to scheduled PT visits and reports adherence to HEP. Since IE, pt with improvements in BLE strength. Pt still presents with impairments noted upon initial evaluation. Pt?s progress is limited by limited sessions attended so far. PT to continue treating for LBP and refer back to PCP for further LB imaging d/t worsening complaints of balance impairments and pain. Pt would continue to benefit from skilled outpatient physical therapy to address remaining deficits and achieve LTGs. Patient goals met ST/ LTG: In progress Goals Not Met PRIMO, At worst pain, LTGs Plan Plan Continue POC Frequency of Therapy 2x a week Duration of therapy 5-6 weeks Time and Billing Re-Eval Time 10 Re-Eval Billing Units 1 PHYSICIAN CERTIFICATION: I certify the specified therapy services for Sil Humphrey are required, authorized, and reviewed every 30 days.
--- NOTE | 2023-11-10 09:18 | HMH.RHREAS ---
Rehab Reassessment Rehab OP Re-assessment Start: 08/27/23 13:42 Freq: Status: Active Protocol: Document 11/10/23 07:24 JEFF (Rec: 11/10/23 08:57 JEFF [id number]) E-signed By Blanca Khoury PT Neck Disability Index Neck Disability Index Section 1: Pain Intensity The pain is moderate at the moment Section 2: Personal Care (washing, It is painful to look after dressing, etc.) myself and I am slow and careful Section 3: Lifting Pain prevents me from lifting heavy weights, but I can manage light to Section 4: Reading I can read as much as I want with moderate pain in my neck Section 5: Headaches I have moderate headaches, which come frequently Section 6: Concentration I have a fair degree of difficulty in concentrating when I want to Section 7: Work I cannot do my usual work Section 8: Driving I can't drive my car as long as I want because of moderate pain in my Section 9: Sleeping My sleep is midly disturbed (1 -2 hrs sleepless) Section 10: Recreation I am able to engage in a few of my usual recreation activities because NDI Score 25 Oswestry Index Section 1 Pain Intensity The pain is moderate and does not vary much Section 2 Personal Care (Washing,Dresing) increase the pain and I find it necessary to change my way of doing it Section 3 Lifting lifting heavy weights off the floor, but I can manage light to medium Section 4 Walking I cannot walk more than 1/2 mile without increasing pain Section 5 Sitting Pain prevents me from sitting for more than one hour Section 6 Standing I cannot stand more than 10 minutes without increasing pain Section 7 Sleeping Because of my pain, my normal night's sleep is less than 6 hours sleep Section 8 Social Life Pain has restricted my social life and I do not go out often Section 9 Traveling Pain restricts me to short necessary journeys under 30 minutes Section 10 Changing Degreee of Pain My pain is gradually getting worse Score and Risk Level Oswestry Sc 32 Oswestry Risk Level Severe Disability Rehab Re-assessment Subjective Subjective Pt reports she feels about the same. Pt feels her pain is gradually getting worse. Pt reports her LB is worse than her neck or mid back. Pt reports she has not been back to her PCP but does have an appointment with her health specialist on the Nov. PCP tried to get MRI but was denied. Pt called her physician to try again but was told to keeping trialing PT first. HEP compliance: Pt reports the shoulder squeezes hurt so she does not do those. 24 hour pain average: 7/10 Pain at worst: 10/ Pt reports she fell on Thursday when on a stool and it broke. Pt denies any injury. Pt reports her weakness is about the same and he is still using a cane. Objective Objective Notes BLE MMTs: Hip FLEX = 4/5 Hip ABD = 4/5 Hip ADD = 4/5 Knee FLEX =4/5 Knee EXT = 4/5 Lumbar Flexion: ~75% of normal motion and non-painful. Lumbar Extension: WNL, non- painful. PRIMO: 32 Severe Disability NDI: 25 Assessment Progress Assessment Slower Than Expected Assessment Notes This is a reassessment for Sil Humphrye who presents to PT for c/o back and neck pain . Since last RA, pt has been seen for 5 treatment visits (8 sessions total since IE) that have consisted of modalities prn, education, and therapeutic exercises focusing on core/BLE strength. Pt with fair attendance to scheduled PT visits and reports adherence to HEP. Since last RA, pt's pain complaints and strength have remained the same. Pt still presents with impairments noted upon initial evaluation. Pt?s progress is limited by limited sessions attended so far and chronic/ progressive nature of pt's medical diagnosis of . PT to continue treating for LBP and again refer back to PCP for further LB imaging d/t worsening complaints. Pt would continue to benefit from skilled outpatient physical therapy to address remaining deficits and achieve LTGs. Patient goals met ST/4 LTG: In progress Plan Plan Continue POC Frequency of Therapy 2x Duration of therapy 4 weeks Time and Billing Re-Eval Time 10 Re-Eval Billing Units 1 PHYSICIAN CERTIFICATION: I certify the specified therapy services for Sil Humphrey are required, authorized, and reviewed every 30 days.
== END 2023-11-10 23:59 | disposition home or self-care (01) ==
LOC: PT 08:00
PROVIDERS: Visit Provider Nurse Practitioner Family
DX: M54.50 Low back pain, unspecified (principal); M79.604 Pain in right leg; M79.605 Pain in left leg; R20.0 Anesthesia of skin
CPT/HCPCS: 97014; 97110; 97163; 97164; 97530; G0283

== ENCOUNTER 2023-12-01 07:41 | Outpatient (CLI) | payer BC, SELFPAY | END 2023-12-01 23:59 | disposition home or self-care (01) | LOC: LAB 07:42 | PROVIDERS: PCP Nurse Practitioner Family; Visit Provider Physician Assistant Medical | DX: Z02.9 Encounter for administrative examinations, unspecified (principal) ==

== ENCOUNTER 2023-12-03 07:49 | Outpatient (CLI) | payer BC, SELFPAY ==
[2023-12-08 10:14] LABS: Cortisol,F,ug/24hr,U 23 ug/24 hr (6-42); Cortisol,F,ug/L,U 18 ug/L (Undefined)
[2023-12-09 08:31] LABS: Miscellaneous Test SCANNED IMAGE
== END 2023-12-03 23:59 | disposition home or self-care (01) ==
PROVIDERS: PCP Nurse Practitioner Family; Visit Provider Physician Assistant Medical
DX: R79.89 Other specified abnormal findings of blood chemistry (principal)
CPT/HCPCS: 82530

== ENCOUNTER 2023-12-22 15:20 | Outpatient (CLI) | payer BC, SELFPAY ==
--- NOTE | 2023-12-22 15:22 | XR_ITS ---
FINAL REPORT CLINICAL HISTORY: Low back/hip pain COMPARISON: None FINDINGS: 3 views of the lumbar spine were obtained. There is no evidence of fracture. There is no malalignment. The vertebrae are normal in height. Disc spaces are preserved. No paraspinous soft tissue abnormalities identified. IMPRESSION: No acute bony abnormality. Reviewed, Interpreted and Dictated by Radames Jimenez III, MD Transcribed by Nola Nina Authenticated and [facility]
--- NOTE | 2023-12-22 15:22 | XR_ITS ---
FINAL REPORT CLINICAL HISTORY: Left hip pain COMPARISON: None FINDINGS: LEFT HIP: Two views of the left hip demonstrate no acute fracture or dislocation. The joint spaces appear normal. The visualized bony structures are well aligned. No soft tissue abnormality is seen. IMPRESSION: No acute bony abnormality. Reviewed, Interpreted and Dictated by Radames Jimenez III, MD Transcribed by Nola Nina Authenticated and . [facility]
--- NOTE | 2023-12-22 15:22 | XR_ITS ---
FINAL REPORT CLINICAL HISTORY: Right hip pain COMPARISON: None FINDINGS: RIGHT HIP Two views of the right hip with an AP view of the pelvis demonstrate no acute fracture or dislocation. The joint spaces appear normal. The visualized bony structures are well aligned. No soft tissue abnormality is seen. IMPRESSION: No acute bony abnormality. Reviewed, Interpreted and Dictated by Radames Jimenez III, MD Transcribed by Nola Nina Authenticated and [facility]
== END 2023-12-22 23:59 | disposition home or self-care (01) ==
LOC: RAD 15:20
PROVIDERS: PCP Nurse Practitioner Family; Visit Provider Nurse Practitioner Family
DX: R20.0 Anesthesia of skin (principal); R20.2 Paresthesia of skin; M45.9 Ankylosing spondylitis of unspecified sites in spine; M54.50 Low back pain, unspecified; M79.604 Pain in right leg; M79.605 Pain in left leg; M25.551 Pain in right hip; M25.552 Pain in left hip
CPT/HCPCS: 72100; 73502

== ENCOUNTER 2024-01-18 12:04 | Outpatient (CLI) | payer BC, SELFPAY ==
[2024-01-18 13:09] LABS: Magnesium 1.9 mg/dl (1.6-2.3)
[2024-01-18 14:00] LABS: Vitamin B12 332 pg/mL (239-931)
[2024-01-20 08:07] LABS: Zinc 72 ug/dL (44-115)
[2024-01-21 15:09] LABS: Vitamin B1 112.3 nmol/L (66.5-200.0)
[2024-01-22 04:08] LABS: Vitamin B6 9.5 ug/L (3.4-65.2)
== END 2024-01-18 23:59 | disposition home or self-care (01) ==
LOC: LAB 12:05
PROVIDERS: PCP Nurse Practitioner Family; Visit Provider Nurse Practitioner Family
DX: R20.0 Anesthesia of skin (principal); R20.2 Paresthesia of skin
CPT/HCPCS: 36415; 82607; 83735; 84207; 84425; 84630

== ENCOUNTER 2024-02-01 10:55 | Emergency (ER) | payer BC, SELFPAY ==
--- NOTE | 2024-02-01 12:33 | ED_ITS ---
Discharge Plan Disposition Patient Disposition: Home, Self-Care Condition: Good Prescriptions Prescriptions: New amoxicillin 875 mg tablet 875 mg PO Q12H Qty: 20 0RF benzonatate 100 mg capsule 100 mg PO TIDP PRN (Reason: Cough) Qty: 30 0RF methylprednisolone 4 mg Tablets,Dose Pack 4 mg PO DIRECTED 6 Days Qty: 21 0RF Rx Instructions: Take 1 pack as directed for 6 days No Action cholecalciferol (vitamin D3) 125 mcg (5,000 unit) capsule 125 mcg PO DAILY bisoprolol fumarate 5 mg tablet 5 mg PO QDAY Qty: 30 5RF Cimzia 400 mg/2 mL (200 mg/mL x 2) syringe kit SQ duloxetine 60 mg capsule,delayed release(DR/EC) 60 mg PO DAILY albuterol sulfate 90 mcg/actuation HFA aerosol inhaler 2 puff inhalation Q4-6H PRN (Reason: shortness of breath or wheezing) Qty: 8.5 2RF magnesium glycinate 118 mg magnesium capsule 118 mg PO DAILY norgestimate-ethinyl estradiol [Dzs-Ks-Ljolushi] 0.18/0.215/0.25 mg-25 mcg tablet 1 tab PO DAILY Qty: 84 3RF Cimzia 200 mg/mL syringe kit 200 mg SQ Q2W meloxicam 15 mg tablet 15 mg PO DAILY Qty: 30 2RF Referrals Follow up/Referrals: Kailee Fenton APRN [Primary Care Provider] - See instructions Activity Restrictions/Add. Instructions Additional Instructions/Restrictions: Drink plenty of fluids. Take tylenol or ibuprofen for pain or fever. Take the medications as directed. Follow up with your regular doctor. GO TO THE ER FOR ANY WORSENING SYMPTOMS Clinical Impressions Clinical Impression: Pharyngitis, Bronchitis, Acute viral syndrome, RSV exposure Instructions Patient Instructions: Respiratory Syncytial Virus, DI for Respiratory Syncytial Virus -- Adults Print Language Print Language: Wolof Discharge ED Provider: Az Connolly [facility] HPI General Stated complaint: cough, s/t, h/a, chills, B/A, exp to rsv/pnem Time Seen by Provider: 02/01/24 12:33 Related Data Home Medications ?Medication ?Instructions ?Recorded ?Confirmed cholecalciferol (vitamin D3) 125 125 mcg PO DAILY 12/17/22 01/19/24 mcg (5,000 unit) capsule magnesium glycinate 118 mg PO DAILY 08/04/23 01/19/24 certolizumab pegol 200 mg/mL 200 mg SQ Q2W 12/22/23 02/01/24 subcutaneous syringe kit (Cimzia) certolizumab pegol 400 mg/2 mL mg SQ 01/18/24 01/19/24 (200 mg/mL x2) subcutaneous syringe kit (Cimzia) duloxetine 60 mg capsule,delayed 60 mg PO DAILY 01/18/24 01/19/24 release Previous Rx's ?Medication ?Instructions ?Recorded albuterol sulfate 90 mcg/actuation 2 puff inhalation Q4-6H PRN 11/12/22 aerosol inhaler shortness of breath or wheezing #8.5 grams norgestimate 0.18 mg/0.215 mg/0.25 1 tab PO DAILY #84 tabs 08/04/23 mg-ethinyl estradiol 25 mcg tablet (Ior-Mb-Qlcyqihh) bisoprolol fumarate 5 mg tablet 5 mg PO QDAY #30 tabs 09/01/23 meloxicam 15 mg tablet 15 mg PO DAILY #30 tabs 12/22/23 amoxicillin 875 mg tablet 875 mg PO Q12H #20 tabs 02/01/24 benzonatate 100 mg capsule 100 mg PO TIDP PRN Cough #30 caps 02/01/24 methylprednisolone 4 mg tablets in 4 mg PO DIRECTED 6 days #21 tabs 02/01/24 a dose pack Allergies Allergy/AdvReac Type Severity Reaction Status Date / Time benzoyl peroxide AdvReac Rash Verified 01/19/24 09:49 metoprolol AdvReac Mild Night Uncoded 01/19/24 09:49 [facility] Disclaimer: The information contained in this section may have been updated after the patient was seen, as this information can be updated by other users. Medical History Abnormal uterine bleeding Abnormal thyroid blood test Allergies Asthma History of pre-eclampsia With first child, currently not . Seasonal allergies Scoliosis Thoracolumbar scoliosis of 10 degrees on 11/13/2022 Otitis media Bronchitis Sinusitis Surgical History No significant past surgical history Family History Mother Fibromyalgia Father Heart failure Other Diabetes Social History Smoking Status: Never smoker alcohol intake: never current occupational status: other details: Self Employed Travel in the last 8 weeks: None Have you lived/traveled outside [place] in past 30 days?: No Contact w/someone who lives/traveled outside [place] past 30 days?: No Exposure to someone with infectious disease in past 14 days?: Yes Do you have a fever (greater than 100.4 F or 38 C)?: No Have you tested positive for COVID-19: No Exposed to someone with COVID-19 in past 14 days?: No Do you have a sore throat?: Yes Do you have a cough?: Yes Do you have any weakness?: Yes Do you have any diarrhea?: No Are you experiencing any unusual bleeding?: No Do you have any muscle aches/pain?: Yes Do you have any abdominal pain?: No Are you experiencing loss of taste or smell?: No ROS Obtained: Yes All systems reviewed & no additional complaints except as documented Constitutional Constitutional: Reports chills and Reports fever(s) Eyes Eyes: Denies eye discharge ENT Ears, Nose, Mouth, and Throat: Reports as per HPI Cardiovascular Cardiovascular: Denies chest pain Respiratory Respiratory: Denies chest congestion and Reports cough Gastrointestinal Gastrointestingal: Reports nausea; Denies abdominal pain, constipation, cramping, diarrhea or vomiting Musculoskeletal Musculoskeletal: Denies arthralgias Integumentary/Breasts Skin/Breast: Denies rash Neurologic Neurologic: Denies paresthesias Physical Exam General General appearance: alert and in no apparent distress Head Head exam: atraumatic, normocephalic and normal inspection Eye Eye exam: Present normal appearance, PERRL and EOMI ENT ENT exam: Present mucous membranes moist and normal external ear exam Expanded ENT Exam TM/Canal exam: Bilateral TM: erythema and bulging Nose exam: Absent sinus tenderness Mouth exam: Present normal external inspection; Absent drooling Teeth exam: Present normal inspection Throat exam: Present tonsillar erythema, tonsillomegaly and tonsillar exudate Neck Neck exam: Present normal inspection, full ROM and trachea midline; Absent tenderness, meningismus or lymphadenopathy Chest Chest inspection: Present normal inspection and symmetric chest wall rise; Absent tenderness Respiratory Respiratory exam: Present normal lung sounds bilaterally; Absent respiratory distress, wheezes, stridor or accessory muscle use Cardiovascular Cardiovascular exam: Present regular rate and normal rhythm; Absent systolic murmur or diastolic murmur Abdominal Exam Abdominal exam: Present soft and normal bowel sounds; Absent distention, tenderness, guarding, rebound or rigidity Extremities Exam Extremities exam: Present normal inspection and normal capillary refill; Absent calf tenderness Back Exam Back exam: Present normal inspection and full ROM; Absent tenderness, CVA tenderness (R) or CVA tenderness (L) Neurological Exam Neurological exam: Present alert, oriented X3 and CN II-XII intact Psychiatric Psychiatric exam: Present normal affect and normal mood Skin Skin exam: Present warm, dry, intact and normal color Medical Decision Making Medical Records Medical records reviewed: No I reviewed the patient's medical records. Screening: Per USPSTF and CDC recommendations, given the prevalence of disease in our region, it is our hospital?s policy to screen for HIV and viral Hepatitis for all patients aged 18 and over and those with ongoing risk factors. Jose Martin Inquiry Pt receiving controlled substance: No Lab Data Lab results reviewed: Yes I reviewed the patient's lab results.
[2024-02-01 12:37] VITALS: BP 110/68; PULSE 100; RESP 18; TEMP 36.8; O2SAT 99; BMI 32.8
[2024-02-01 12:44] LABS: UTC Influenza A Antigen Negative (Negative); UTC Influenza B Antigen Negative (Negative); UTC Strep Screen (Rapid) Negative (Negative)
[2024-02-01 13:36] VITALS: BP 110/68; PULSE 100; RESP 18; TEMP 36.8
[2024-02-01 14:26] LABS: RSV Rapid Ab Screen Negative (Negative)
== END 2024-02-01 13:39 | disposition home or self-care (01) ==
PROVIDERS: Emergency Provider Nurse Practitioner Family; PCP Nurse Practitioner Family
DX: J02.9 Acute pharyngitis, unspecified (principal); J20.9 Acute bronchitis, unspecified; B34.9 Viral infection, unspecified; Z03.818 Encounter for observation for suspected exposure to other biological agents ruled out; R50.9 Fever, unspecified; R05.9 Cough, unspecified; R11.0 Nausea
CPT/HCPCS: 87804; 87807; 87880; 99212; G0381

== ENCOUNTER 2024-02-22 09:21 | Outpatient (CLI) | payer BC, SELFPAY ==
--- NOTE | 2024-02-22 09:22 | MR_ITS ---
FINAL REPORT TECHNIQUE: Multiplanar MR without contrast CLINICAL HISTORY: Numbness and tingling. DIZZINESS AND JOINT/MUSCLE PAIN. HEADACHE COMPARISON: None FINDINGS: Diffusion sequences show no signal abnormality to indicate acute infarct. No mass, hemorrhage or edema is seen. Ventricles are normal. Major vascular flow voids are intact. Note is made of mucous retention cysts in the right frontal sinus and the bilateral maxillary sinuses. IMPRESSION: Unremarkable MR of the brain without contrast Reviewed, Interpreted and Dictated by Deena Guerrero MD Transcribed by Bhargavi Fenton Authenticated and [facility]
== END 2024-02-22 23:59 | disposition home or self-care (01) ==
LOC: RAD 09:22
PROVIDERS: PCP Nurse Practitioner Family; Visit Provider Nurse Practitioner Family
DX: R20.0 Anesthesia of skin (principal); R20.2 Paresthesia of skin; G90.A Postural orthostatic tachycardia syndrome [POTS]
CPT/HCPCS: 70551

== ENCOUNTER 2024-03-29 16:12 | Outpatient (CLI) | payer BC, SELFPAY ==
[2024-03-29 13:50] LABS: Erythrocyte Sedimentation Rate 22 mm/hr (0-20)
[2024-03-29 13:53] LABS: Uric Acid 3.6 mg/dl (2.5-6.2)
[2024-03-29 14:58] LABS: 25-OH Vitamin D, Total 53.6 ng/mL (30-100)
[2024-03-30 04:11] LABS: RA Latex Turbid. <10.0 IU/mL (<14.0)
[2024-03-31 14:23] LABS: Antinuclear Antibodies, IFA Positive (.)
== END 2024-03-29 23:59 | disposition home or self-care (01) ==
LOC: LAB.DROPOF 16:12
PROVIDERS: PCP Nurse Practitioner Family; Visit Provider Nurse Practitioner Family
DX: M79.7 Fibromyalgia (principal); R20.0 Anesthesia of skin; R20.2 Paresthesia of skin; M25.531 Pain in right wrist; M25.532 Pain in left wrist
CPT/HCPCS: 82306; 84550; 85651; 86038; 86431

== ENCOUNTER 2024-04-07 08:57 | Outpatient (CLI) | payer BC, SELFPAY ==
--- NOTE | 2024-04-07 09:00 | XR_ITS ---
FINAL REPORT CLINICAL HISTORY: bilateral wrist pain, medial (pinky) side. no known injury. 6 months COMPARISON: 11/27/2022 FINDINGS: LEFT WRIST Three views show no evidence of an acute, displaced fracture or dislocation of the visualized bony architecture. The joint spaces appear normal. IMPRESSION: Unremarkable exam. Reviewed, Interpreted and Dictated by Deena Guerrero MD Transcribed by Rozina Ardon Authenticated and . [facility]
--- NOTE | 2024-04-07 09:00 | XR_ITS ---
FINAL REPORT CLINICAL HISTORY: bilateral wrist pain, medial (pinky) side. no known injury. 6 months COMPARISON: 11/27/2022 FINDINGS: RIGHT WRIST Three views show no evidence of an acute, displaced fracture or dislocation of the visualized bony architecture. The joint spaces appear normal. IMPRESSION: Unremarkable exam. Reviewed, Interpreted and Dictated by Deena Guerrero MD Transcribed by Rozina Ardon Authenticated and [facility]
== END 2024-04-07 23:59 | disposition home or self-care (01) ==
LOC: RAD 08:58
PROVIDERS: PCP Nurse Practitioner Family; Visit Provider Physician Assistant Surgical
DX: M25.532 Pain in left wrist (principal); M25.531 Pain in right wrist
CPT/HCPCS: 73110

== ENCOUNTER 2024-04-25 07:43 | Outpatient (CLI) | payer BC, SELFPAY ==
--- NOTE | 2024-04-25 07:46 | CT_ITS ---
FINAL REPORT TECHNIQUE: Multiple axial CT sections were performed through the face without IV contrast. Coronal and sagittal reconstruction images were performed. This study was performed with techniques to keep radiation doses as low as reasonably achievable (ALARA). Individualized dose reduction techniques using automated exposure control or adjustment of mA and/or kV according to the patient's size were employed. CLINICAL HISTORY: mucus retention cyst FINDINGS: Facial Bones: No displaced facial bone fractures. Paranasal sinuses, nasal passages and mastoid air cells: There are polyps or mucous retention cyst present in the inferior maxillary sinuses. There is a 14 mm cyst or polyp in the inferior left maxillary sinus, as well as to in the right maxillary sinus, the superior cyst/polyp is bilobed, measuring 18 x 10 mm in size. There is chronic septal deviation 4 mm to the right. The sinuses are otherwise unremarkable. Bony orbits and optic globes: No orbital fractures. The optic globes are unremarkable and symmetric. Soft tissues: No significant soft tissue swelling. IMPRESSION: Polyps or maxillary retention cysts in the maxillary sinuses bilaterally as described. Chronic nasal septal deviation 4 mm to the right. Reviewed, Interpreted and Dictated by Deena Guerrero MD Transcribed by Bhargavi Fenton Authenticated and [facility]
== END 2024-04-25 23:59 | disposition home or self-care (01) ==
LOC: RAD 07:44
PROVIDERS: PCP Nurse Practitioner Family; Visit Provider Nurse Practitioner
DX: R09.81 Nasal congestion (principal)
CPT/HCPCS: 70486

== ENCOUNTER 2024-05-16 09:43 | Outpatient (RCR) | payer BC, SELFPAY ==
--- NOTE | 2024-05-16 14:49 | HMH.PTOPEV ---
PT Outpatient Evaluation Rehab PT Outpatient Evaluation Start: 05/16/24 09:49 Freq: Status: Active Protocol: Document 05/16/24 11:13 TREVON (Rec: 05/16/24 14:48 TREVON [id number]) E-signed By Shayan Arroyo, PT Outpatient Therapy Subjective History Subjective History Pt is a 34 yof who is referred to [facility] outpatient PT with complaints of bilateral hand pain and weakness. She reports that she often feels like her fingers are hypermobile. She reports that has a history of autoimmune disease. Reports that any activities where she uses her hands are difficult and increase her symptoms, such as typing, cooking, cleaning, writing, opening jars or holding items. She reports that this has been ongoing for over a year and has not worsened or improved in that time frame. PMH: Axial Spondyloarthritis, Fibromyalgia, POTS Occupation: Supply Chain Systems Manager New diagnosis of cancer in past 12 No months? Chief Complaint Pain,Weakness,Decreased Out Of Town Collection Clerk Strength Symptom Type Ache Symptoms Relieved By Nothing Symptoms Aggravated By Lifting Current Functional Limitations Reaching,Housework,Dressing, Desk Work/Reading Symptom Description Constant and Continuous Level of pain today (0-10) 6 Pain scale - at its best (0-10) 6 Pain scale - at its worst (0-10) 6 Wrist/Hand Eval Palpation Tenderness/Visual Exam Wrist pain bilateral tenderness wrist exam standard bilateral Wrist/Hand Palpation Findings Tenderness Wrist/Hand Palpation Overall Comment 3/4 TTP to b/l hands grossly. Wrist Range of Motion Bilateral Wrist ROM Reason Not Measured Within Functional Limits Wrist Manual Muscle Testing Right Wrist Extension Strength Grade 3+ Fair+ Wrist Flexion Strength Grade 3+ Fair+ Wrist Radial Deviation Strength Grade 3+ Fair+ Wrist Ulnar Deviation Strength Grade 3+ Fair+ Forearm Supination Strength Grade 4- Good- Forearm Pronation Strength Grade 3+ Fair+ Left Wrist Extension Strength Grade 3+ Fair+ Wrist Flexion Strength Grade 3+ Fair+ Wrist Radial Deviation Strength Grade 3+ Fair+ Wrist Ulnar Deviation Strength Grade 3+ Fair+ Forearm Pronation Strength Grade 4- Good- Supinator Strength Grade 3+ Fair+ Out Of Town Collection Clerk/Pinch Strength Right Out Of Town Collection Clerk Strength Measurement (lbs) 20 Palmar Pinch (3-point) Strength 12 Measurement (lbs) Tip Pinch (2-point) Strength Measurement 9 (lbs) Left Out Of Town Collection Clerk Strength Measurement (lbs) 12 Palmar Pinch (3-point) Strength 15 Measurement (lbs) Tip Pinch (2-point) Strength Measurement 7 (lbs) QuickDASH Activities Please rate your ability to do the following activities in the last week by selecting the number below the appropriate response. 1. Open a tight or new jar. Severe difficulty 2. Do heavy client manager large law (e.g., wash Severe difficulty conti, floors). 3. Carry a shopping bag or briefcase. Moderate difficulty 4. Wash your back. Mild difficulty 5. Use a knife to cut food. Moderate difficulty 6. Recreational activities in which you Moderate difficulty take some force or impact through your arm, shoulder, or hand (e.g., golf, hammering, tennis, etc.). 7. During the past week, to what extent Moderately has your arm, shoulder or hand problem interfered with your normal social activities with family, friends, neighbors or groups? 8. During the past week, were you Moderately limited limited in your work or other regular daily activites as a result of your arm, shoulder or hand problem? 9. Arm, shoulder or hand pain. Moderate 10. Tingling (pins and needles) in your Severe arm, shoulder or hand. 11. During the past week, how much Severe difficulty difficulty have you had sleeping because of the pain in your arm, shoulder or hand? Quick DASH 36 Outpatient Therapy Assessment Impairments Problems/Impairmments Palpation Tenderness,Impaired Strength,Impaired Household Care,Impaired Work Activities, Impaired Desk/Computer Activities,Subjective C/O Pain Prognosis Rehab Potential Good Clinical Impression Consistent with Diagnosis Yes Consistent with Autoimmune weakness of Hands Short Term Goals Number of Weeks 4 Decreased Palpation Tenderness Yes: 1/4 to TTP assessment above Increase Strength Yes: 4/5 to MMT of Wrist Improve Ability to Dress Self Yes: Fasten buttons with minimal difficulty Decrease Subjective C/O Pain Yes: 4/10 pain with above assessment Patient to be Ind w/ HEP Yes [facility] Goals Number of Weeks 8 Decreased Palpation Tenderness Yes: 0-1/4 to TTP assessment above Increase Strength Yes: Out Of Town Collection Clerk/Pinch Strength by 3- 4 pounds each Improve Ability For Household Care Yes: Cook/clean with minimal difficulty and without increasing pain Improve Tolerance to Desk/Computer Yes: Type for work without Activities increasing pain and with minimal difficulties Improve Quick Dash Score Yes: <15 Decrease Subjective C/O Pain Yes: 2-3/10 with above assessment Patient to be Ind w/ Advanced HEP Yes Outpatient Therapy Plan of Care Treatment Plan May Include Therapeutic Exercise Including Home Yes Exercise Program Manual Therapy Techniques Yes Neuromuscular Re-education Yes Therapeutic Activities to Return to Yes Previous Functional/Work Level ADL/Self Care Education Yes Thermal Modalities Yes Electrical Stimulation Yes Ultrasound/Phonophoresis Yes Parrafin Yes Massage Yes Manual Lymphatic Drainage Yes Eval/Re-Eval Yes Frequency Times per week 1-2 Duration Number of Weeks 8 Addendums This patient is a candidate for social No or vocational rehab? Patient/Guardian verbally acknowledges Yes understanding of treatment program and consents to further treatment? Patient/Guardian verbally acknowledges Yes understanding of diagnosis, prognosis and goals for treatment? Eval Complexity PT Charges [id number] - Moderate Complexity Shoulder/Elbow Eval Shoulder Objective Measurements Elbow Objective Measurements PHYSICIAN CERTIFICATION: I certify the specified therapy services for Sil Humphrey are required, authorized, and reviewed every 30 days.
== END 2024-05-16 23:59 | disposition home or self-care (01) ==
LOC: PT 09:43
PROVIDERS: PCP Nurse Practitioner Family; Visit Provider Nurse Practitioner Family
DX: M24.9 Joint derangement, unspecified (principal)
CPT/HCPCS: 97163

== ENCOUNTER 2024-05-22 13:52 | Emergency (ER) | payer BC, SELFPAY ==
[2024-05-22] VITALS (8 sets, daily range): BP systolic 102–128; BP diastolic 70–78; PULSE 73–87; RESP 13–16; TEMP 36.9; O2SAT 99–100; BMI 32.1
--- NOTE | 2024-05-22 13:55 | ED_ITS ---
Discharge Plan Disposition Patient Disposition: Home, Self-Care Prescriptions Prescriptions: No Action bisoprolol fumarate 5 mg tablet 5 mg PO QDAY Qty: 30 5RF duloxetine 60 mg capsule,delayed release(DR/EC) 60 mg PO DAILY multivitamin Tablet 1 tab PO DAILY albuterol sulfate 90 mcg/actuation HFA aerosol inhaler 2 puff inhalation Q4-6H PRN (Reason: shortness of breath or wheezing) Qty: 8.5 2RF magnesium glycinate 118 mg magnesium capsule 118 mg PO DAILY Cimzia 200 mg/mL syringe kit 200 mg SQ Q2W pregabalin [Lyrica] 25 mg capsule 25 mg PO Q8H 30 Days Qty: 90 0RF levonorgestrel-ethinyl estrad 0.15 mg-30 mcg (91) tablets,dose pack,3 month See Rx Instructions PO .COMPLEX Qty: 273 0RF Rx Instructions: take 1 tablet daily following the order on blister card(s) PO Referrals Follow up/Referrals: Lonnie Stover DO [Staff Physician] - See instructions Kailee Fenton APRN [Primary Care Provider] - See instructions Activity Restrictions/Add. Instructions Additional Instructions/Restrictions: Follow-up with orthopedic surgeon (call their clinic, info has been provided) for repeat x-ray imaging of your right hand in the next 2 to 3 weeks to rule out a scaphoid injury. Take Tylenol and ibuprofen as needed for pain. Clinical Impressions Clinical Impression: Tenderness of anatomical snuffbox Injury of hand, right Qualifiers: Encounter type: initial encounter Qualified Code(s): S69.91XA - Unspecified injury of right wrist, hand and finger(s), initial encounter Print Language Print Language: Gambian Discharge ED Provider: Erik Cotto General Adult HPI General Chief complaint: PAIN Stated complaint: Smashed R hand/thumb pain/swelling Time Seen by Provider: 05/22/24 13:55 Mode of Arrival: Ambulatory Source of Information: Patient Limitations: No Limitations History of Present Illness HPI narrative: 34-year-old female with a history of fibromyalgia, rheumatoid arthritis, ankylosing spondylitis and POTS who presents w/ right hand/wrist injury. She states that a folding table accidentally closed on it. Reports diminished sensation across her entire right hand diffusely. Denies any other injuries. Related Data Home Medications ?Medication ?Instructions ?Recorded ?Confirmed magnesium glycinate 118 mg PO DAILY 08/04/23 05/03/24 certolizumab pegol 200 mg/mL 200 mg SQ Q2W 12/22/23 05/03/24 subcutaneous syringe kit (Cimzia) duloxetine 60 mg capsule,delayed 60 mg PO DAILY 01/18/24 05/03/24 release multivitamin 1 tab PO DAILY 03/29/24 05/03/24 Previous Rx's ?Medication ?Instructions ?Recorded bisoprolol fumarate 5 mg tablet 5 mg PO QDAY #30 tabs 09/01/23 albuterol sulfate 90 mcg/actuation 2 puff inhalation Q4-6H PRN 03/29/24 aerosol inhaler shortness of breath or wheezing #8.5 grams levonorgestrel 0.15 mg-ethinyl See Rx Instructions PO .COMPLEX 04/27/24 estradiol 30 mcg tablets,3 mos #273 tabs pack(91) pregabalin 25 mg capsule (Lyrica) 25 mg PO Q8H 30 days #90 caps 04/27/24 Allergies Allergy/AdvReac Type Severity Reaction Status Date / Time benzoyl peroxide AdvReac Rash Verified 05/03/24 14:55 metoprolol AdvReac Mild Night Uncoded 05/03/24 14:55 terrors [facility] Disclaimer: The information contained in this section may have been updated after the patient was seen, as this information can be updated by other users. Medical History Mucous retention cyst Abnormal uterine bleeding Abnormal thyroid blood test Allergies Asthma History of pre-eclampsia With first child, currently not . Seasonal allergies Scoliosis Thoracolumbar scoliosis of 10 degrees on 11/13/2022 Otitis media Bronchitis Sinusitis Surgical History No significant past surgical history Family History Mother Fibromyalgia Father Heart failure Other Diabetes Social History Smoking Status: Never smoker alcohol intake: never current occupational status: other details: Self Employed Travel in the last 8 weeks: None Have you lived/traveled outside [place] in past 30 days?: No Contact w/someone who lives/traveled outside [place] past 30 days?: No Exposure to someone with infectious disease in past 14 days?: No Do you have a fever (greater than 100.4 F or 38 C)?: No Have you tested positive for COVID-19: No Exposed to someone with COVID-19 in past 14 days?: No Do you have a sore throat?: No Do you have a cough?: No Do you have any weakness?: No Do you have any diarrhea?: No Are you experiencing any unusual bleeding?: No Do you have any muscle aches/pain?: No Do you have any abdominal pain?: No Are you experiencing loss of taste or smell?: No Other Medical History Have you received the Pneumonia Vaccine: No ROS Obtained: Yes All systems reviewed & no additional complaints except as documented Physical Exam General General appearance: alert and in no apparent distress Eye Eye exam: Present normal appearance, PERRL and EOMI Respiratory Respiratory exam: Absent respiratory distress Cardiovascular Cardiovascular exam: Present regular rate Abdominal Exam Abdominal exam: Absent distention Extremities Exam Extremities exam: Present other (RUE: No deformity. Tenderness in the anatomic snuffbox. Globally diminished sensation of the right hand. 2+ radial pulse with no discoloration. 5-5 strength diffusely to the right hand.) Neurological Exam Neurological exam: Present alert and oriented X3 Skin Skin exam: Present warm and dry Medical Decision Making Medical Records Medical records reviewed: Yes I reviewed the patient's medical records. Screening: Per USPSTF and CDC recommendations, given the prevalence of disease in our region, it is our hospital?s policy to screen for HIV and viral Hepatitis for all patients aged 18 and over and those with ongoing risk factors. MR Comment: Family medicine office visit from 04/27/2024 notable for patient's past medical history as noted above Jose Martin Inquiry Pt receiving controlled substance: No Vital Signs: 05/22/24 13:57 05/22/24 13:58 05/22/24 14:00 Temperature 98.4 F Temperature Source Oral Pulse Rate 80 75 Pulse Rate [Left Radial] 77 Respiratory Rate 13 Blood Pressure 128/75 120/78 Blood Pressure [Right Arm] 128/75 Blood Pressure Mean [Right Arm] 92 Blood Pressure Source Automatic Cuff Automatic Cuff Blood Pressure Source [Right Arm] Automatic Cuff Blood Pressure Position [Right Arm] Supine 02 Sat by Pulse Oximetry 100 100 100 Oxygen Delivery Method Room Air Room Air Room Air 05/22/24 14:15 05/22/24 14:30 05/22/24 14:45 Temperature Temperature Source Pulse Rate 73 81 87 Pulse Rate [Left Radial] Respiratory Rate Blood Pressure 114/74 110/76 102/74 L Blood Pressure [Right Arm] Blood Pressure Mean [Right Arm] Blood Pressure Source Blood Pressure Source [Right Arm] Blood Pressure Position [Right Arm] 02 Sat by Pulse Oximetry 99 99 100 Oxygen Delivery Method Room Air Room Air Room Air 05/22/24 15:00 Temperature Temperature Source Pulse Rate 76 Pulse Rate [Left Radial] Respiratory Rate Blood Pressure 124/71 Blood Pressure [Right Arm] Blood Pressure Mean [Right Arm] Blood Pressure Source Blood Pressure Source [Right Arm] Blood Pressure Position [Right Arm] 02 Sat by Pulse Oximetry 100 Oxygen Delivery Method Room Air Orders (Tests/Meds): ORDERS Category Date Time Status XR hand RT min 3V Stat Exams 05/22/24 13:57 Completed XR wrist RT min 3V Stat Exams 05/22/24 13:59 Completed Medical Decision Narrative: In summary, this 34-year-old female with a history of fibromyalgia, rheumatoid arthritis, ankylosing spondylitis and POTS presents to the emergency department today with right hand injury. On initial evaluation patient is afebrile, nontoxic-appearing, hemodynamically stable. Differential diagnosis includes but is not limited to fracture, dislocation, neurovascular injury, soft tissue injury, scaphoid injury. Based on these concerns, I ordered x-ray of the right hand and wrist. XR personally interpreted demonstrates no acute osseous pathology. Patient had tenderness over the anatomic snuffbox. Placed in a thumb spica splint and instructed to follow-up with orthopedic surgery. Gave the patient information to call the clinic and schedule an appointment in the next 2 to 3 weeks for repeat imaging. Ultimately discharged stable condition. Critical Care Critical Care Time Critical Care Time: No
--- NOTE | 2024-05-22 13:57 | XR_ITS ---
PROCEDURE INFORMATION: Exam: XR Right Hand Exam date and time: 05/22/2024 2:32 PM Age: 34 years old Clinical indication: Injury or trauma; Other: Smashed; Blunt trauma (contusions or hematomas); Hand; Right; Additional info: Smashed R hand, swelling & pain mainly to first digit TECHNIQUE: Imaging protocol: Radiologic exam of the right hand. Views: 3 or more views. COMPARISON: CR XR HAND RT MIN 3V 11/27/2022 10:22 AM FINDINGS: Bones/joints: Normal. Soft tissues: Normal. IMPRESSION: No acute findings.
--- NOTE | 2024-05-22 13:59 | XR_ITS ---
PROCEDURE INFORMATION: Exam: XR Right Wrist Exam date and time: 05/22/2024 2:32 PM Age: 34 years old Clinical indication: Injury or trauma; Other: Smashed; Blunt trauma (contusions or hematomas); Wrist; Right; Additional info: Smashed in folding table, pain, swelling mainly to first digit TECHNIQUE: Imaging protocol: Radiologic exam of the right wrist. Views: 3 or more views. COMPARISON: CR XR WRIST RT MIN 3V 04/07/2024 9:01 AM FINDINGS: Bones/joints: Normal. Soft tissues: Normal. IMPRESSION: No acute findings.
== END 2024-05-22 15:29 | disposition home or self-care (01) ==
PROVIDERS: Emergency Provider Student in an Organized Health Care Education/Training Program; PCP Nurse Practitioner Family
DX: S69.91XA Unspecified injury of right wrist, hand and finger(s), initial encounter (principal); W23.0XXA Caught, crushed, jammed, or pinched between moving objects, initial encounter
CPT/HCPCS: 99283; 73110; 73130

== ENCOUNTER 2024-05-25 11:00 | Outpatient (CLI) | payer BC, SELFPAY ==
[2024-05-25 10:42] LABS: Microscopic, Urine URINE MICROSCOPIC (MICROSCOPIC)
[2024-05-25 10:51] LABS: Basophils % 0.5 % (0.1-2.0); Eosinophils # 0.1 K/mm3 (0.0-0.4); Eosinophils % 1.1 % (0.1-12.0); Hemoglobin 12.4 g/dL (12.2-16.2); Lymphocytes # 2.2 K/mm3 (0.7-4.5); Lymphocytes % 24.7 % (10-50); Mean Corpuscular HGB Conc 32.6 g/dL (31.8-35.4); Mean Corpuscular Hemoglobin 28.6 pg (27.0-31.2); Mean Corpuscular Volume 87.6 fl (81-99); Mean Platelet Volume 9.7 fl (7.4-10.4); Monocytes # 0.5 K/mm3 (0.1-1.0); Monocytes % 5.3 % (1.7-9.3); Neutrophils # 5.9 K/mm3 (1.8-7.8); Neutrophils % 68.1 % (37.0-80.0); Nucleated Red Blood Cells # 0 10^3/uL; Nucleated Red Blood Cells % 0 %; Platelet Count 481 K/mm3 (142-424); Red Blood Count 4.34 M/mm3 (4.20-5.40); Red Cell Distribution Width 13.2 % (11.5-17.5); Red Cell Distribution Width-SD 42.2 fL; White Blood Count 8.7 K/mm3 (4.8-10.8)
[2024-05-25 11:30] LABS: Albumin Level 4.1 g/dl (3.5-5.0); Chloride 104 mmol/L (98-107); Potassium 5.1 mmoL/L (3.5-5.1); Sodium 138 mmol/L (136-145)
[2024-05-25 11:32] LABS: Blood Urea Nitrogen 13 mg/dl (7-17); Estimated Glomerular Filt Rate 83 ml/min (>60); GFR (African American) 101 ML/MIN (>60)
[2024-05-25 11:33] LABS: Alanine Aminotransferase 26 U/L (12-78); Albumin/Globulin Ratio 1.2 (1.1-1.8); Alkaline Phosphatase 63 U/L (38-126); Anion Gap 14.1 mEq/L (5-15); Aspartate Amino Transferase 29 U/L (14-36); Bilirubin,Total 0.3 mg/dl (0.2-1.3); Calcium 9.2 mg/dl (8.4-10.2); Carbon Dioxide 25 mmol/L (22.0-30.0); Globulin 3.4 g/dL (1.3-3.2); Glucose 88 mg/dl (74-100); Total Protein,Serum 7.5 g/dl (6.3-8.2)
[2024-05-25 11:40] LABS: Appearance,Urine SL CLOUDY (Clear); Bilirubin,Urine Negative (Negative); Blood, Urine Negative (Negative); Color,Urine YELLOW (Yellow); Glucose,Urine (UA) Negative (Negative); Ketones,Urine Negative (Negative); Leukocyte Esterase,Urine 2+ (Negative); Nitrate,Urine Negative (Negative); PH,Urine 5.5 (5.0-8.5); Protein,Urine Negative (Negative); Specific Gravity, Urine 1.025 (1.005-1.030); Urobilinogen,Urine 0.2 EU/dl (0.2)
[2024-05-25 12:33] LABS: Bacteria,Urine 1+ /lpf; Squamous Epithelial Cell,Urine 20-50 #/hpf (0-5); WBC,Urine 20-50 #/hpf (0-3)
[2024-06-02 07:10] LABS: Vitamin C 0.3 mg/dL (0.4-2.0)
== END 2024-05-25 23:59 | disposition home or self-care (01) ==
LOC: LAB.DROPOF 11:00
PROVIDERS: PCP Nurse Practitioner Family; Visit Provider Nurse Practitioner Family
DX: R82.4 Acetonuria (principal); R80.9 Proteinuria, unspecified; R20.0 Anesthesia of skin
CPT/HCPCS: 80053; 81001; 82043; 82180; 85025; 87086

== ENCOUNTER 2024-06-01 09:33 | Outpatient (CLI) | payer BC, SELFPAY ==
--- NOTE | 2024-06-01 10:00 | US_ITS ---
FINAL REPORT TECHNIQUE: Multiple sonographic images of the kidneys were obtained in the longitudinal and transverse planes. CLINICAL HISTORY: ketonuria -- proteinuria FINDINGS: The right kidney measures 10.6 cm in [id number] length. There is no hydronephrosis, mass or stone. Cortical echogenicity and cortical thickness are within normal limits. The left kidney measures 11.1 cm in [id number] length. There is no hydronephrosis, mass or stone. Cortical echogenicity and cortical thickness are within normal limits. IMPRESSION: Morphologically normal kidneys bilaterally. Reviewed, Interpreted and Dictated by Shanelle Manuel MD Transcribed by Francie Rudolph Authenticated and [facility]
== END 2024-06-01 23:59 | disposition home or self-care (01) ==
LOC: RAD 09:33
PROVIDERS: PCP Nurse Practitioner Family; Visit Provider Nurse Practitioner Family
DX: R80.9 Proteinuria, unspecified (principal); R82.4 Acetonuria
CPT/HCPCS: 76770

== ENCOUNTER 2024-10-18 10:40 | Outpatient (CLI) | payer OTHER, SELFPAY ==
--- OUTSIDE RECORDS SUMMARY | 2024-08-22 10:30 | XMS_ITS | Encounter Summary ---
Author Organization [facility] Address [address] [place] [address] Care Team Providers Care Staffing And Scheduling Coordinator Name Role Phone Kailee Fenton APRN Primary Care Provider [phone] Reason for Visit * Reason Comments new patient POTS, anesthesia & p aresthesia of skin * Consultation (Urgent) - Pending Review Specialty Diagnoses / Procedures Referred By Tamera estes Referred To Contact Neurology Diagnoses Anesthesia of skin Paresthesia of skin Postural orthostatic tachycardia syndrome (POTS) Kailee Fenton APRN [address] [place] [address] Phone: tel: fax: Tavia Tang MD [address] [facility] [address] [place] [address] Phone: tel: fax: Referral ID Status Reason Start Date Expiration Date V isits Requested Visits Authorized [id number] Pending Review 05/03/2024 08/02/2025 1 1 Encounter Details Date Type Department Care Team (Late st Contact Info) Description 08/22/2024 10:30 AM EDT Office Visit [facility] NEUROLOGY 210 [facility] [address] [place] [address] Tavia Tang MD [address] [facility] [address] [place] [address] POTS (postural orthostatic tachycardia syndrome) (Primary Dx); Small fiber neuropathy Social History Tobacco Use Types Packs/Day Years Used Date Smoking Tobacco: Former Cigarettes 0.3 2 Passive Smoke Exposure: Past Smokeless Tobacco: Never Tobacco Cessation:Counseling Given: No Alcohol Use Standard Drinks/Week Comments Not Currently 0 (1 standard drink = 0.6 oz pur e alcohol) PHQ-2 Answer Date Recorded Patient Health Questionnaire-2 Score 0 06/10/2024 Comments No Sex and Gender Information Value Date Recorded Sex Assigned at Female 08/22/2024 8:58 AM EDT Legal Sex Female 11:30 AM EDT Gender Identity Not on file Sexual Orientation Not on file documented as of this encounter Last Filed Vital Signs Vital Sign Reading Time Taken Comments Blood Pressure 120/78 08/22/2024 10:06 AM EDT Pulse 102 08/22/2024 10:06 AM EDT Temperature - - Respiratory Rate - - Oxygen Saturation 99% 08/22/2024 10:06 AM EDT Inhaled Oxygen Concentration - - Weight 88.9 kg (196 lb) 08/22/2024 9:54 AM EDT Height 165.1 cm (5' 5 ) 08/22/2024 9:54 AM EDT Body Mass Index 32.62 08/22/2024 9:54 AM EDT documented in this encounter Progress Notes * Tavia Tang MD - 08/22/2024 10:30 AM EDT Subjective: CC: Sil Humphrey is seen today in consultation at the request of Kailee Fenton APRN for new patient (POTS, anesthesia & paresthesia of skin) HPI: 34-year-old female with a history of fibromyalgia, anxiety, ankylosing spondylitis presents with paresthesias in her hands and feet as well as lightheadedness. Patient states she started to have postural lightheadedness mainly while standing up about 1-1/2 years ago. She has had COVID twice entheses about 4 and 3 years ago). With her episodes she reports to having tunnel vision or her vision going dark along with palpitations. She has passed out once about 8 months ago. She was started on bisoprolol currently at 5 mg daily which has helped. Still has some lightheadedness about twice a week. She also reports to having numbness, tingling and pain that started off in her legs but is now diffuse affecting the arms and her back. Her PCP started her on Lyrica currently at 100 mg daily that helps with her symptoms. She had an EMG/nerve conduction study of the upper and lower extremities that was completely normal. She also had a MRI brain earlier this year that was normal and did not show any chronic ischemic changes or acute intracranial abnormalities. She also reports to having arthralgias. 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 Has been tried on various medications for ankylosing spondylitis including Cimzia but has been unable to tolerate them or not responded to them. Currently on no medications. Of note-I personally reviewed her MRI brain and her rheumatology notes The following portions of the patient's history were reviewed today and updated as of 08/22/2024 : allergies, current medications, past family history, past medical history, past social history, pastsurgical history, and problem list These document will be scanned to patient's chart. Current Outpatient Medications: albuterol sulfate HFA 108 (90 Base) MCG/ACT inhaler, Inhale 2 puffs Every 6 (Six) Hours As Needed.,Disp: , Rfl: bisoprolol (ZEBeta) 5 MG tablet, Take 0.5 tablets by mouth Daily. (Patient taking differently: Take1 tablet by mouth Daily.), Disp: , Rfl: cetirizine (All Day Allergy) 10 MG tablet, , Disp: , Rfl: DULoxetine (CYMBALTA) 60 MG capsule, Take 1 capsule by mouth Daily., Disp: 30 capsule, Rfl: 5 levonorgestrel-ethinyl estradiol (SEASONALE) 0.15-0.03 MG per tablet, Take 1 tablet by mouth Daily., Disp: , Rfl: Magnesium 100 MG capsule, Take 1 capsule by mouth Daily., Disp: , Rfl: pregabalin (LYRICA) 25 MG capsule, Take 1 capsule by mouth 2 (Two) Times a Day. (Patient taking differently: Take 4 capsules by mouth Daily.), Disp: , Rfl: triamcinolone (KENALOG) 0.1 % cream, Apply topically to the appropriate area as directed 3 (Three) Times a Day. apply topically to the affected area three times daily, Disp: , Rfl: midodrine (PROAMATINE) 2.5 MG tablet, Take 1 tablet by mouth Daily., Disp: 30 tablet, Rfl: 5 Past Medical History: Diagnosis Date Abnormal thyroid blood test Anxiety Depression Difficulty walking Fibromyalgia Fibromyalgia, primary Headache, tension-type Hypertension Memory loss Migraine Movement disorder Non-radiographic axial spondyloarthritis Peripheral neuropathy Pre-eclampsia Scoliosis Syncope Vision loss Vitamin D deficiency 11/2022 History reviewed. No pertinent surgical history. Family History Problem Relation Age of Onset Thyroid disease Mother Goiter Diabetes Maternal Grandmother Pre-diabetes Cancer Maternal Grandfather Brain cancer Diabetes Maternal Grandfather Arthritis Other Diabetes Other Heart disease Other Fibromyalgia Other Social History Socioeconomic History Marital status: Tobacco Use Smoking status: Former Current packs/day: 0.25 Average packs/day: 0.3 packs/day for 2.0 years (0.5 ttl pk-yrs) Types: Cigarettes Passive exposure: Past Smokeless tobacco: Never Vaping Use Vaping status: Never Used Substance and Sexual Activity Alcohol use: Not Currently Drug use: Never Sexual activity: Yes Partners: Male control/protection: Condom, control pill Review of Systems Musculoskeletal: Positive for arthralgias. Neurological: Positive for dizziness, light-headedness and numbness. All other systems reviewed and are negative. Objective: BP 120/78 (BP Location: Left arm, Patient Position: Standing) Pulse 102 Ht 165.1 cm (65 ) Wt 88.9 kg (196 lb) SpO2 99% No BMI 32.62 kg/m?? Neurology Exam: General apperance: NAD. Orthostatics checked today were as follows-blood pressure on lying down 108/76, HR 80, on sitting 102/72, HR 85 and on standing 120/78, HR 102. Mental status: Alert, awake and oriented to time place and person. Recent and Remote memory: Intact. Attention span and Concentration: Normal. Language and Speech: Intact- No dysarthria. Fluency, Naming , Repitition and Comprehension: Intact Cranial Nerves: CN II: Visual verdugo are full. Intact. Fundi - Normal, No papillederma, Pupils - ASHLEY CN III, IV and : Extraocular movements are intact. Normal saccades. CN V: Facial sensation is intact. CN VII: Muscles of facial expression reveal no asymmetry. Intact. CN VIII: Hearing is intact. Whispered voice intact. CN IX and X: Palate elevates symmetrically. Intact CN XI: Shoulder shrug is intact. CN XII: Tongue is midline without evidence of atrophy or fasciculation. Ophthalmoscopic exam of optic disc-normal Motor: Right UE muscle strength 5/5. Normal tone. Left UE muscle strength 5/5. Normal tone. Right LE muscle strength5/5. Normal tone. Left LE muscle strength 5/5. Normal tone. Sensory: Patchy reduction to pinprick in fingertips of both hands as well as in her feet to the midfoot level with intact temperature sensation but mildly reduced vibration sensation in lower extremities DTRs: 2+ bilaterally in upper and lower extremities. Babinski: Negative bilaterally. Co-ordination: Normal rbyadi-as-ixqj, heel to foster B/L. Rhomberg: Negative. Gait: Normal. Could do tandem walking Cardiovascular: Regular rate and rhythm without murmur, gallop or rub. Assessment and Plan: 1. POTS (postural orthostatic tachycardia syndrome) Based on her symptoms she could have autonomic dysfunction mainly POTS as she has rapid increases in heart rate with minor decreases in blood pressure. Tilt table test could be avoided as she is already on medications I told her to continue bisoprolol 5 mg daily I will also start her on midodrine 2.5 mg daily I have counseled her to keep herself extremely well-hydrated, carry out postural modifications, eatsmall frequent meals during the day with adequate salt, wear above-knee moderate compression stockings for increased venous return and carry out isovolumetric leg contraction exercises to build vascular tone 2. Small fiber neuropathy EMG/NCS of the upper and lower extremities was normal and did not show any large fiber neuropathy. MRI brain was also normal. She could have small fiber neuropathy that can be associated with autoimmune diseases as well as autonomic dysfunction. In the future a skin biopsy could be done to confirm the diagnosis -I will check the rest of her neuropathy panel -She should continue Lyrica 100 mg daily - Hemoglobin A1c; Future - Protein Elec + Interp, Serum; Future - Vitamin B12 & Folate; Future - Vitamin B6; Future Return in about 3 months (around 11/22/2024). I spent over 45 minutes with the patient face to face out of which over 50% (30 minutes) was spent in management, instructions and education. Tavia Tang MD documented in this encounter Plan of Treatment Upcoming Encounters Date Type Department Care Team (Late st Contact Info) Description 10/27/2024 9:15 AM EDT Office Visit [facility] RHEUMATOLOGY [address] [place] [address] Doug Moya, CLINICAL EDUCATION MANAGER [address] [place], [place] [id number] 11/22/2024 2:15 PM EDT Office Visit [facility] NEUROLOGY [address] [facility] [address] [place] [address] Tavia Tang MD [address] [facility] [address] [place] [address] documented as of this encounter Results * Vitamin B6 (08/22/2024 10:58 AM EDT) Vitamin B6 13.5 3.4 - 65.2 ug/L 08/27/2024 3:09 PM EDT [facility] Comment: Deficiency: <3.4 Marginal: 3.4 - 5.1 Adequate: >5.1 Blood Venipuncture / Unknown 08/22/2024 10:58 AM EDT 08/22/2024 10:58 AM EDT Narrative [facility] - 08/27/2024 3:09 PM EDT Test(s) [id number] B6 was developed and its performance characteristics determined by [facility]. It has not been cleared or approved by the Food and Drug Administration. Performed at: 01 - [address] [id number] Acoustical Tile Carpent[employer] Supervisor: Christiano Sol MD, Phone: [phone] us Tavia Tang MD LAB BLOOD ORDERABLES Final Resu lt [facility] [address] [place] [address], [place] [phone] * Vitamin B12 & Folate (08/22/2024 10:58 AM EDT) [facility] Folate 13.00 4.78 - 24.20 ng/mL 08/22/2024 7:04 PM EDT [facility] Vitamin B-12 394 211 - 946 pg/mL 08/22/2024 7:04 PM EDT [facility] Blood Venipuncture / Unknown 08/22/2024 10:58 AM EDT 08/22/2024 10:58 AM EDT Narrative [facility] - 08/22/2024 7:04 PM EDT Results may be falsely increased if patient taking Biotin. Tavia Tang MD LAB BLOOD ORDERABLES Final Resu lt Performing Organization Address [facility]/ZIP Co de Phone Number [facility]
[address] [place] [address], [place] [phone] * Protein Elec + Interp, Serum (08/22/2024 10:58 AM EDT) [facility] Total Protein 6.9 6.0 - 8.5 g/dL 08/23/2024 4:11 PM EDT [facility] Albumin 3.3 2.9 - 4.4 g/dL 08/23/2024 4:11 PM EDT [facility] Zgimy-2-Yaftwjiu 0.4 0.0 - 0.4 g/dL 08/23/2024 4:11 PM EDT [facility] Vzpyy-3-Dbqboqhp 0.9 0.4 - 1.0 g/dL 08/23/2024 4:11 PM EDT [facility] Beta Globulin 1.2 0.7 - 1.3 g/dL 08/23/2024 4:11 PM EDT [facility] Gamma Globulin 1.2 0.4 - 1.8 g/dL 08/23/2024 4:11 PM EDT [facility] M-Davide Not Observed Not Observed g/dL 08/23/2024 4:11 PM EDT [facility] Globulin 3.6 2.2 - 3.9 g/dL 08/23/2024 4:11 PM EDT [facility] A/G Ratio 0.9 0.7 - 1.7 08/23/2024 4:11 PM EDT [facility] Please note Comment 08/23/2024 4:11 PM EDT [facility] Comment: Protein electrophoresis scan will follow via computer, mail, or wood ski maker delivery. SPE Interpretation Comment 2024 4:11 PM EDT [facility] Comment: The SPE pattern appears unremarkable. Evidence of monoclonal protein is not apparent. Blood Venipuncture / Unknown 08/22/2024 10:58 AM EDT 08/22/2024 10:58 AM EDT Narrative [facility] - 08/23/2024 4:11 PM EDT Performed at: - [address] [id number] [employer] Supervisor: Gerald Zapata PhD, Phone: [phone] us Tavia Tang MD LAB BLOOD ORDERABLES Final Resu lt [facility] [address] [place] [address], * Hemoglobin A1c (08/22/2024 10:58 AM EDT) Hemoglobin A1C 5.10 4.80 - 5.60 % 08/23/2024 12:43 AM EDT [facility] Blood Venipuncture / Unknown 08/22/2024 10:58 AM EDT 08/22/2024 10:58 AM EDT Narrative [facility] - 08/23/2024 12:43 AM EDT Hemoglobin A1C Ranges: Increased Risk for Diabetes 5.7% to 6.4% Diabetes >= 6.5% Diabetic Goal < 7.0% us Tavia Tang MD LAB BLOOD ORDERABLES Final Resu lt [facility]
[address] [place] [address], documented in this encounter Visit Diagnoses Diagnosis POTS (postural orthostatic tachycardia syndrome)- Primary Unspecified tachycardia Small fiber neuropathy documented in this encounter Care Teams Staffing And Scheduling Coordinator Relationship Specialty Start Date End Date Kailee Fenton APRN [address] [place] [address] PCP - General Internal Medicine 04/26/24 documented as of this encounter
--- OUTSIDE RECORDS SUMMARY | 2024-08-22 11:00 | XMS_ITS | Encounter Summary ---
Author Organization [facility] Address [address] [place] [address] Care Team Providers Care Skydiving Instructor Name Role Phone FentonKailee guerrero SOHAIL Primary Care Provider [phone] Encounter Details Date Type Department Care Team (Late Contact Info) Description 08/22/2024 11:00 AM EDT Lab [facility] [address] [place] [address] Small fiber neuropathy Social History Tobacco Use Types Packs/Day Years Used Date Smoking Tobacco: Former Cigarettes 0.3 2 Passive Smoke Exposure: Past Smokeless Tobacco: Never Alcohol Use Standard Drinks/Week Comments Not Currently [...] on file documented as of this encounter Plan of Treatment Upcoming Encounters Date Type Department Care Team (Late Contact Info) Description 10/27/2024 9:15 AM EDT Office Visit [facility] RHEUMATOLOGY [address] [phone] Doug Moya APRN [address] [address] 11/22/2024 2:15 PM EDT Office Visit [facility] NEUROLOGY [address] [facility] [address] [place] [address] Tavia Tang MD [address] [facility] [address] [place] [address] documented as of this encounter Procedures Procedure Name Priority Date/Time Associated Diagnosis Comments PROTEIN ELEC + INTERP, SERUM Routine 08/22/2024 10:58 AM EDT Small fiber neuropathy VITAMIN B12 AND FOLATE Routine 08/22/2024 10:58 AM EDT Small fiber neuropathy VITAMIN B6 Routine 08/22/2024 10:58 AM EDT Small fiber neuropathy HEMOGLOBIN A1C Routine 08/22/2024 10:58 AM EDT Small fiber neuropathy documented in this encounter Results * Vitamin B6 (08/22/2024 10:58 AM EDT) Vitamin B6 13.5 3.4 - 65.2 ug/L 08/27/2024 3:09 PM EDT [facility] Comment: Deficiency: <3.4 Marginal: 3.4 - 5.1 Adequate: >5.1 Blood Venipuncture / Unknown 08/22/2024 10:58 AM EDT 08/22/2024 10:58 AM EDT Narrative [facility] - 08/27/2024 3:09 PM EDT Test(s) [id number] B6 was developed and its performance characteristics determined by [facility]. It has not been cleared or approved by the Food and Drug Administration. Performed at: 01 - [address] [id number] Electrical Instrument Repairer: Christiano Sol MD, Phone: [phone] us Tavia Tang MD LAB BLOOD ORDERABLES Final Resu lt [facility] [address] [place] [address], [place] [phone] * Vitamin B12 & Folate (08/22/2024 10:58 AM EDT) [facility] Folate 13.00 4.78 - 24.20 ng/mL 08/22/2024 7:04 PM EDT [facility] Vitamin B-12 394 211 - 946 pg/mL 08/22/2024 7:04 PM EDT [facility] Blood Venipuncture / Unknown 08/22/2024 10:58 AM EDT 08/22/2024 10:58 AM EDT Narrative [facility] - 08/22/2024 7:04 PM EDT Results may be falsely increased if patient taking Biotin. Tavia Tang MD LAB BLOOD ORDERABLES Final Resu lt [facility]
[address] [place] [address], * Protein Elec + Interp, Serum (08/22/2024 10:58 AM EDT) [facility] Total Protein 6.9 6.0 - 8.5 g/dL 08/23/2024 4:11 PM EDT [facility] Albumin 3.3 2.9 - 4.4 g/dL 08/23/2024 4:11 PM EDT [facility] Lsrpu-6-Sddhdplm 0.4 0.0 - 0.4 g/dL 08/23/2024 4:11 PM EDT [facility] Owufb-2-Qmvcbrpb 0.9 0.4 - 1.0 g/dL 08/23/2024 4:11 [...] 0.7 - 1.7 08/23/2024 4:11 PM EDT [facility] Please note Comment 08/23/2024 4:11 PM EDT [facility] Comment: Protein electrophoresis scan will follow via computer, mail, or railroad wheels and axle inspector delivery. SPE Interpretation Comment 2024 4:11 PM EDT [facility] Comment: The SPE pattern appears unremarkable. Evidence of monoclonal protein is not apparent. Blood Venipuncture / Unknown 08/22/2024 10:58 AM EDT 08/22/2024 10:58 AM EDT Narrative [facility] - 08/23/2024 4:11 PM EDT Performed at: [address] [place] [id number] Electrical Instrument Repairer: Gerald Zapata PhD, Phone: [phone] Tavia Tang MD LAB BLOOD ORDERABLES Final Resu lt Performing Organization Address [facility]/ZIP Co de Phone Number [address] [address], * Hemoglobin A1c (08/22/2024 10:58 AM EDT) Hemoglobin A1C 5.10 4.80 - 5.60 % 08/23/2024 12:43 AM EDT [facility] Blood Venipuncture / Unknown 08/22/2024 10:58 AM EDT 08/22/2024 10:58 AM EDT Narrative [facility] - 08/23/2024 12:43 AM EDT Hemoglobin A1C Ranges: Increased Risk for Diabetes 5.7% to 6.4% Diabetes >= 6.5% Diabetic Goal < 7.0% Tavia Tang MD LAB BLOOD ORDERABLES Final Resu lt [facility]
[address] [place] [address], documented in this encounter Visit Diagnoses Diagnosis Small fiber neuropathy documented in this encounter Care Teams Skydiving Instructor Relationship Specialty Start Date End Date Kailee Fenton APRN [address] [place] [address] PCP - General Internal Medicine 04/26/24 documented as of this encounter
[2024-10-18 14:23] LABS: Hematocrit 39.0 % (37.0-47.0); Hemoglobin 12.4 g/dL (12.2-16.2); Immature Granulocytes % 0.1 %; Mean Corpuscular HGB Conc 31.8 g/dL (31.8-35.4); Mean Corpuscular Hemoglobin 27.7 pg (27.0-31.2); Mean Corpuscular Volume 87.1 fl (81-99); Nucleated Red Blood Cells % 0 %; Platelet Count 530 K/mm3 (142-424); Red Blood Count 4.48 M/mm3 (4.20-5.40); Red Cell Distribution Width-SD 45.0 fL; White Blood Count 8.7 K/mm3 (4.8-10.8)
[2024-10-18 15:03] LABS: Alanine Aminotransferase 33 U/L (12-78); Albumin Level 4.2 g/dl (3.5-5.0); Albumin/Globulin Ratio 1.4 (1.1-1.8); Alkaline Phosphatase 69 U/L (38-126); Anion Gap 12.4 mEq/L (5-15); Aspartate Amino Transferase 34 U/L (14-36); Bilirubin,Total 0.4 mg/dl (0.2-1.3); Blood Urea Nitrogen 12 mg/dl (7-17); Calcium 9.5 mg/dl (8.4-10.2); Carbon Dioxide 28 mmol/L (22.0-30.0); Chloride 101 mmol/L (98-107); Creatinine,Serum 0.70 mg/dl (0.52-1.04); Estimated Glomerular Filt Rate 97 ml/min (>60); GFR (African American) 117 ML/MIN (>60); Globulin 3.1 g/dL (1.3-3.2); Glucose 76 mg/dl (74-100); Magnesium 1.9 mg/dl (1.6-2.3); Potassium 5.4 mmoL/L (3.5-5.1); Sodium 136 mmol/L (136-145); Total Protein,Serum 7.3 g/dl (6.3-8.2)
[2024-10-18 15:09] LABS: C-Reactive Protein 24.2 mg/L (0-4)
[2024-10-18 15:21] LABS: 25-OH Vitamin D, Total 47.2 ng/mL (30-100)
[2024-10-18 15:34] LABS: Thyroid Stimulating Hormone 1.65 uIU/mL (0.465-4.68)
--- OUTSIDE RECORDS SUMMARY | 2024-10-19 09:43 | XMS_ITS | Encounter Summary ---
Author Organization [facility] Address [address] [place] [address] Care Team Providers Care Checker/Stocker Name Role Phone EliceoKailee SOHAIL Primary Care Provider [phone] Encounter Details Date Type Department Care Team (Late st Contact Info) Description 08/25/2024 Telephone [facility] R[facility] 330 [facility] 100 [place] [address] Doug Moya APRN [address] [address] Social History Tobacco Use Types Packs/Day Years [...] on file documented as of this encounter Miscellaneous Notes * Telephone Encounter - Noris Maurice PharmD - 08/25/2024 12:27 PM EDT Patient is not taking Taltz. * Telephone Encounter - Isra Cohen RegSched Rep - 08/25/2024 9:09 AM EDT Images from the original note were not included. documented in this encounter Plan of Treatment Upcoming Encounters Date Type Department Care Team (Late st Contact Info) Description 10/27/2024 9:15 AM EDT Office Visit [facility]HEUM[facility]OLOG[facility] [address] [facility] [address] [place] [phone] Doug Moya APRN 330 [facility] 100 [place], [place] [id number] 11/22/2024 2:15 PM EDT Office Visit [facility] NEUROLOGY [address] [facility] [address] [place] [address] Tavia Tang MD [address] [facility] [address] [place] [address] documented as of this encounter Visit Diagnoses Not on filedocumented in this encounter Care Teams Checker/Stocker Relationship Specialty Start Date End Date Kailee Fenton APRN [facility] [address] [address] PCP - General Internal Medicine 04/26/24 documented as of this encounter
--- OUTSIDE RECORDS SUMMARY | 2024-10-19 09:43 | XMS_ITS | Encounter Summary ---
Author Organization [facility] Address [address] [place] [address] Care Team Providers Care Rotary Bar Operator Name Role Phone Kailee Fenton SOHAIL Primary Care Provider Encounter Details Date Type Department Care Team (Late Contact Info) Description 08/26/2024 Patient rounding ([facility] only) [facility] NEUROLOGY [address] [facility] [address] [place] [address] Emily Lind Social History Tobacco Use Types Packs/Day Years [...] Description 10/27/2024 9:15 AM EDT Office Visit [facility] RHEUMATOLOGY 330 [facility] 100 [place] [address] Doug Moya APRN 330 [facility] 100 [place] [id number] 11/22/2024 2:15 PM EDT Office Visit [facility] NEUROLOG[facility] [address] [facility] [address] [place] [address] Tavia Tang MD 210 [facility] [address] [place] [address] documented as of this encounter Visit Diagnoses Not on filedocumented in this encounter Care Teams Rotary Bar Operator Relationship Specialty Start Date End Date Kailee Fenton APRN [facility] [address] [address] PCP - General Internal Medicine 04/26/24 documented as of this encounter
--- OUTSIDE RECORDS SUMMARY | 2024-10-19 09:43 | XMS_ITS | Encounter Summary ---
Author Organization [facility] Address [address] [place] [address] Care Team Providers Care Internal Wholesaler Name Role Phone Kailee Fenton APRN Primary Care Provider [phone] Encounter Details Date Type Department Care Team (Late Contact Info) Description 08/24/2024 Results Follow-Up [facility] NEUROLOGY [address] [facility] [address] [place] [address] Tavia Tang MD [address] [facility] [address] [place] [address] Social History Tobacco Use Types Packs/Day Years [...] Description 10/27/2024 9:15 AM EDT Office Visit [facility] R[facility]UMAT[facility] 330 [facility] [address] [place] [address] Doug Moya, PATTERNMAKER METAL BENCH [address] [facility] [address] [place], [place] [id number] 11/22/2024 2:15 PM EDT Office Visit [facility] NEUROLOGY [address] [facility] [address] [place] [address] Tavia Tang MD [address] [facility] [address] [place] [address] documented as of this encounter Visit Diagnoses Not on filedocumented in this encounter Care Teams Internal Wholesaler Relationship Specialty Start Date End Date Kaliee Fenton, SOHAIL [facility] [place] [address] PCP - General Internal Medicine 04/26/24 documented as of this encounter
--- OUTSIDE RECORDS SUMMARY | 2024-10-19 09:43 | XMS_ITS ---
Author Organization [facility] Address [address] [place] [address] Care Team Providers Care Amortization Clerk Name Role Phone Kailee Fenton APRN Primary Care Provider Rheumatology - External Fill Status:Enrolled (Active) Start date:08/07/2023 Enrollment date:08/07/2023 Current support & services provided:Benefits Investigation, Prior Authorization, External Pharmacy Dispensing Linked medications:Ixekizumab (Discontinued) Linked problems:Inflammatory spondylopathy (Resolved), Non-radiographic axial spondyloarthritis (Active) Case Team Name Relationship Phone Che Granados Hr Associate Patient Ca re Electrical Transmission Engineer Isra Haile Hr Associate Electrical Transmission Engineer Neri Messina PharmD Pharmacist Continued Care and Services Coordination
--- OUTSIDE RECORDS SUMMARY | 2024-10-19 09:43 | XMS_ITS | Clinical Summary ---
Author Organization Healthcare Address [address] [id number] Care Team Providers Care Trapper Bird Name Role Phone Unavailable Primary Care Provider Unavailabl e Immunizations Immunization Administration Dates Next Due Influenza, injectable, quadrivalent, preservativ e free 03/05/2015 MMR 10/02/2015 Tdap 07/23/2015 Social History Tobacco Use Types Packs/Day Years Used Date Smoking Tobacco: Former Alcohol Use Standard Drinks/Week Comments No 0 (1 standard drink = 0.6 oz pur e alcohol) Comments Unknown Sex and Gender Information Value Date Recorded Sex Assigned at Not on file Legal Sex Female 8:26 PM EDT Gender Identity Not on file Sexual Orientation Not on file Last Filed Vital Signs Vital Sign Reading Time Taken Comments Blood Pressure - - Pulse - - Temperature - - Respiratory Rate - - Oxygen Saturation - - Inhaled Oxygen Concentration - - Weight 70.8 kg (156 lb) 11/12/2015 10:43 AM EDT Height 170.2 cm (5' 7 ) 07/23/2015 10:44 AM EDT Body Mass Index 24.43 07/23/2015 10:44 AM EDT Plan of Treatment Health Maintenance Due Date Last Done Comments [facility]-Depression Screening 1992 [facility]-/Child/Adol SDOH Screenings 1992 [facility]- SDOH Screenings 2010 [facility]-Adult SDOH Screenings 2010 [facility]-Hepatitis B Vaccines (1 of 3 - 19+ 3-dose series) 04/10/2011 [facility]-Varicella Vaccines (1 of 2 - 13+ 2-dose series) 10/30/2015 [facility]-Pap Smear 04/06/2018 04/06/2015 HPV Vaccines (1 - 3-dose SCD M series) 04/10/2019 [facility]-Cervical Cancer Screening 2022 [facility]-HPV/Cotest 2022 04/06/2015 [id number] Vaccine (1 - 20 24-25 season) 2024 [facility]-Influenza Vaccine (#1) 2024 03/05/2015 [facility]-DTaP,Tdap,and Td Vaccine s (2 - Td or Tdap) 07/22/2025 07/23/2015 [facility]-Zoster Vaccines (1 of 2) 2042 [facility]-HIB Vaccines Aged Out No longer e ligible based on patient's age to complete this topic [facility]-Hepatitis A Vaccines Aged Out No longer eligible based on patient's age to complete this topic [facility]-IPV Vaccines Aged Out No longer e ligible based on patient's age to complete this topic [facility]-Pneumococcal Vaccine: Pediatrics (0 to 5 Years) and At-Risk Patients (6 to 49 Years) Aged Out No long er eligible based on patient's age to complete this topic [facility]-Rotavirus Vaccines Aged Out No lo nger eligible based on patient's age to complete this topic Procedures Procedure Name Priority Date/Time Associated Diagnosis Comments CYTO DATA CONVERSION Routine 04/06/2015 12:00 AM EST from Last 3 Months or Most Recently Relevant to Health Maintenance Results * Cytology (04/06/2015 12:00 AM EST) 04/06/2015 04/06/2015 4:0 4 PM EST Narrative SUNQUEST - 04/11/2015 3:10 PM EST [facility] MR #: [id number] [facility] [place] [place] [address] 1990 (Age: 24) FW Collect Date: 04/06/2015 00:00 Receipt Date: 04/06/2015 16:04 Page 1 DEPARTMENT OF PATHOLOGY AND LABORATORY MEDICINE CYTOPATHOLOGY REPORT Email: [email or web address] ATTENDING MD/Practitioner: Rashi Muñiz MD Service: OBE Location: [facility] Reported: 04/11/2015 15:10 Collected: 04/06/2015 00:00 INTERPRETATION A. THIN PREP (CERVICAL/VAGINAL): NEGATIVE FOR INTRAEPITHELIAL LESION OR MALIGNANCY. SATISFACTORY FOR EVALUATION; ENDOCERVICAL/ TRANSFORMATION ZONE COMPONENT PRESENT. Slide scanned and imaged by [employer] ThinPrep Imaging System with manual review of all selected verdugo. Electronically Signed Out By PORTILLO Castillo (ASC) PORTILLO Castillo (ASCP) Cervical cytology is a screening test primarily for squamous cancers and precursors and has associated false negative and positive results. New technologies such as liquid based sampling may decrease but will not eliminate all false negative results. Regular screening and follow-up of unexplained clinical signs and symptoms are recommended to minimize false negative results. Please see the ASCCP website (www.asccp.org) for followup recommendations. If HPV testing was requested, correlation with the results is suggested (please call Microbiology at [phone] for results). CLINICAL INFORMATION: Menstrual History: : Second trimester Date of Last Menstrual Period: Unknown Other Clinical Conditions: If ASCUS and > 24 years of age, HPV/DNA testing requested. SPECIMEN DESCRIPTION: A: THIN PREP (CERVICAL/VAGINAL) THIN PREP PROCESS CELLULAR ENHANCEMENT ICD: F: A; RT IMAGE [id number] SNOMED CODES: A; [id number] In cases where a pathologist has signed out the report, the service has been rendered in part by a resident. The signing pathologist has performed and is responsible for the reported pathologic evaluation. Loraine Muñiz MD LAB PATHOLOGY ORDERABLES Amita patel Result SUNQUEST from Last 3 Months or Most Recently Relevant to Health Maintenance
--- OUTSIDE RECORDS SUMMARY | 2024-10-19 09:43 | XMS_ITS | Encounter Summary ---
Author Organization [facility] Address [address] [place] [address] Care Team Providers Care Risk Assessor Name Role Phone Kailee Fenton APRN Primary Care Provider Encounter Details Date Type Department Care Team (Latest Contact Info) Description 08/22/2024 Travel Social History Tobacco Use Types Packs/Day Years [...] Description 10/27/2024 9:15 AM EDT Office Visit [facility] RHEUMATOLOGY [address] [facility] [address] [place] [phone] Doug Moya APRN [address] [place] [address] 11/22/2024 2:15 PM EDT Office Visit [facility] NEUROLOGY [address] [facility] [address] [place] [address] Tavia Tang MD [address] [facility] [address] [place] [address] documented as of this encounter Visit Diagnoses Not on filedocumented in this encounter Care Teams Risk Assessor Relationship Specialty Start Date End Date Kailee Fenton APRN [address] [place] [address] PCP - General Internal Medicine 04/26/24 documented as of this encounter
--- OUTSIDE RECORDS SUMMARY | 2024-10-19 09:43 | XMS_ITS | Clinical Summary ---
Author Organization [facility] Address [address] [place] [address] Care Team Providers Care Director Game Name Role Phone FentonKailee guerrero SOHAIL Primary Care Provider [phone] Allergies No known active allergies Medications albuterol sulfate HFA 108 (90 Base) MCG/ACT inhaler Inhale 2 puffs Every 6 (Six) Hours As Needed. 4 Active bisoprolol (ZEBeta) 5 MG tablet Take 0.5 tablets by mouth Daily. 4 Active cetirizine (All Day Allergy) 10 MG tablet Active Magnesium 100 MG capsule Take 1 capsule by mouth Daily. Active pregabalin (LYRICA) 25 MG capsule Take 1 capsule by mouth 2 (Two) Times a Day. Active DULoxetine (CYMBALTA) 60 MG capsule Take 1 capsule by mouth Daily. 30 capsule 5 5 Active levonorgestrel- ethinyl estradiol (SEASONALE) 0.15-0.03 MG per tablet Take 1 tablet by mouth Daily. 5 Active triamcinolone (KENALOG) 0.1 % cream Apply topically to the appropriate area as directed 3 (Three) Times a Day. apply topically to the affected area three times daily 5 Active midodrine (PROAMATINE) 2.5 MG tablet Take 1 tablet by mouth Daily. 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 See above. Fibromyalgia 11/08/2023 Assessment & Plan (04/26/2024 9:30 AM EDT): 1. H & P consistent with this diagnosis. 2. Encourage aerobic activity and sleep hygiene. 3. If she has not had a sleep study/consultation consider getting this done. 4. Handout on fibromyalgia given to her to take home and review. 5. Tylenol PRN is ok as directed 6. She has tried NSAIDS like ibuprofen PRN 7. She is on duloxetine 60 mg/day. 8. She has done some physical therapy. 9. Another provider has started her pregabalin. The maximum dose here would be 225 mg PO BID Assessment & Plan (11/24/2023 9:10 AM EDT): 1. H & P consistent with this diagnosis. 2. Encourage aerobic activity and sleep hygiene. 3. If she has not had a sleep study/consultation consider getting this done. 4. Handout on fibromyalgia given to her to take home and review. 5. Tylenol PRN is ok as directed 6. She has tried NSAIDS like ibuprofen PRN 7. She is on duloxetine 30 mg PO once/day. We will increase to 60 mg/day. Risks and benefits reviewed. 8. She has done some physical therapy. Abnormal thyroid function test 10/08/2023 Assessment & Plan (01/11/2024 9:15 AM EST): Thyroid levels have been normal. Will repeat once more to ensure stability. Thyroid abnormality does not appear to be contributing to her symptoms. Assessment & Plan (10/08/2023 12:20 PM EDT): Current episodic symptoms of palpitations, dizziness, near syncope and heat intolerance, seem more likely related to autonomic dysfunction but will rule out thyroid dysfunction as contributing factor. 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 Will recheck TSH, free T4, free T3. Patient does have an ongoing autoimmune disease, will check for thyroid antibodies. Further recommendations based on results. 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 Today she rates her pain as 9/10 in severity. She wants to stop Cimzia and try something different. We will therefore try a different biologic agent. Risks and benefits reviewed. 2. Check labs 3. Follow up in 6 months 4. Her prognosis seems guarded. She has chronic pain Some of her pain is due to fibromyalgia. See below 5. We gave her a handout fibromyalgia to take home and review. 6. She reports her SUPRIYA test was recently found to be positive. See below. Assessment & Plan (11/24/2023 9:10 AM EDT): * Medications/treatments/interventions tried include: Tylenol, aspirin, B12 and vitamin D supplements, ibuprofen, Humira, duloxetine, physical therapy * 11/27/22 wrist x-rays were normal * 12/25/22: HLA-B27 positive, CRP elevated at 21 1. Today she rates her pain as 9/10 in severity. She wants to stop Humira and try something different. We will therefore try a different biologic agent. Risks and benefits reviewed. 2. Check labs 3. Follow up in 3-4 months 4. Her prognosis seems guarded. She has chronic pain 5. We gave her a handout on ankylosing spondylitis to take home and review. 6. She has done some physical therapy. Resolved Problems Problem Noted Date Diagnosed Date Resolved Date SUPRIYA positive 04/26/2024 04/26/2024 Joint pain 11/08/2023 04/26/2024 Other fatigue 11/08/2023 04/26/2024 Inflammatory spondylopathy 08/07/2023 0 04/26/2024 Encounters Date Type Department Care Team Description 08/26/2024 Patient rounding (BH only) [facility] NEUROLOGY [address] [facility] [address] [place] [address] Emily Lind 08/25/2024 Telephone [facility] RHEUMATOLOGY [address] [place] [address] Doug Moya, RESIDENTIAL WORKER 08/24/2024 Results Follow-Up [facility] NEUROLOGY [address] [facility] [address] [place] [address] Tavia Tang MD 08/22/2024 11:00 AM EDT Lab [facility] AT [address] [place] [address] Small fiber neuropathy 08/22/2024 10:30 AM EDT Office Visit [facility] NEUROLOGY [address] [facility] [address] [place] [address] Tavia Tang MD POTS (postural orthostatic tachycardia syndrome) (Primary Dx); Small fiber neuropathy 08/22/2024 Travel 07/28/2024 Telephone [facility] RHEUMATOLOGY [address] [address] Noris Maurice, PharmD from Last 3 Months Family History Medical History Relation Name Comments Cancer Maternal Grandfather Pancho Brain c ancer Diabetes Maternal Grandfather Pancho Diabetes Maternal Grandmother Audra Pre-sylvia betes Thyroid disease Mother Irlanda Goiter Arthritis Other family Diabetes Other family Fibromyalgia Other family Heart disease Other family Relation Name Status Comments Father Maternal Grandfather Pancho Maternal Grandmother Audra Mother Irlanda Alive Other family Social History Tobacco Use Types Packs/Day Years [...] Pulse 102 08/22/2024 10:06 AM EDT Temperature 37.8 C (100 F) 06/10/2024 10:22 AM EDT Respiratory Rate 16 06/10/2024 10:22 AM EDT Oxygen Saturation 99% 08/22/2024 10:06 AM EDT Inhaled Oxygen Concentration - - Weight 88.9 kg (196 lb) 08/22/2024 9:54 AM EDT Height 165.1 cm (5' 5 ) 08/22/2024 9:54 AM EDT Body Mass Index 32.62 08/22/2024 9:54 AM EDT Plan of Treatment Upcoming Encounters Date Type Department Care Team (Late st Contact Info) Description 10/27/2024 9:15 AM EDT Office Visit [facility] RHEUMATOLOGY [address] [facility] [address] [place] [phone] Doug Myoa APRN 330 [facility] 100 [place] [address] 11/22/2024 2:15 PM EDT Office Visit [facility] NEUROLOGY [address] [facility] [address] [place] [address] Tavia Tang MD [address] [facility] [address] [place] [address] Health Maintenance Due Date Last Done Comments Annual Gynecologic Pelvic an d Breast Exam 1992 PAP SMEAR 2013 ANNUAL PHYSICAL 06/29/2023 COVID-19 Vaccine (2023-2 5 season) 2024 INFLUENZA VACCINE 11/09/2024 03/05/2015 TDAP/TD VACCINES (2 - Td or Tdap) 07/22/2025 016 HEPATITIS C SCREENING Completed 04/26/2024 Pneumococcal Vaccine 0-49 Aged Out No longer eligible based on patient's age to complete this topic Procedures Procedure Name Priority Date/Time Associated Diagnosis Comments VITAMIN B6 Routine 08/22/2024 10:58 AM EDT Small fiber neuropathy VITAMIN B12 AND FOLATE Routine 08/22/2024 10:58 AM EDT Small fiber neuropathy PROTEIN ELEC + INTERP, SERUM Routine 08/22/2024 10:58 AM EDT Small fiber neuropathy HEMOGLOBIN A1C Routine 08/22/2024 10:58 AM EDT Small fiber neuropathy HEPATITIS PANEL, ACUTE Routine 04/26/2024 9:35 AM EDT Non-radiographic axial spondyloarthritis High risk medication use Fibromyalgia Fatigue, unspecified type SUPRIYA positive from Last 3 Months or Most Recently Relevant to Health Maintenance Results * Protein Elec + Interp, Serum (08/22/2024 10:58 AM EDT) Total Protein 6.9 6.0 - 8.5 g/dL 08/23/2024 4:11 PM EDT [facility] Albumin 3.3 2.9 - 4.4 g/dL 08/23/2024 4:11 PM EDT [facility] Vkvin-3-Uegbduqk 0.4 0.0 - 0.4 g/dL 08/23/2024 4:11 PM EDT [facility] Rtttd-4-Ygjgbnbt 0.9 0.4 - 1.0 g/dL 08/23/2024 4:11 [...] scan will follow via computer, mail, or parts inspector delivery. SPE Interpretation Comment 2024 4:11 PM EDT [facility] Comment: The SPE pattern appears unremarkable. Evidence of monoclonal protein is not apparent. Blood Venipuncture / Unknown 08/22/2024 10:58 AM EDT 08/22/2024 10:58 AM EDT [facility]ative [facility] - 08/23/2024 4:11 PM EDT Performed at: - [address] [id number] Strategy Lead: Gerald Zapata PhD, Phone: [phone] us Tavia Tang MD LAB BLOOD [place] [address], * Vitamin B12 & Folate (08/22/2024 10:58 AM EDT) Folate 13.00 4.78 - 24.20 ng/mL 08/22/2024 7:04 PM EDT [facility] Vitamin B-12 394 211 - 946 pg/mL 08/22/2024 7:04 PM EDT [facility] Blood Venipuncture / Unknown 08/22/2024 10:58 AM EDT 08/22/2024 10:58 AM EDT [facility] - 08/22/2024 7:04 PM EDT Results may be falsely increased if patient taking Biotin. us Tavia Tang MD LAB BLOOD ORDERABLES Final Resu lt [facility]
[address] [place] [address], [place] [phone] * Vitamin B6 (08/22/2024 10:58 AM EDT) Vitamin B6 13.5 3.4 - 65.2 ug/L 08/27/2024 3:09 PM EDT [facility] Comment: Deficiency: <3.4 Marginal: 3.4 - 5.1 Adequate: >5.1 Blood Venipuncture / Unknown 08/22/2024 10:58 AM EDT 08/22/2024 10:58 AM EDT Narrative [facility] - 08/27/2024 3:09 PM EDT Test(s) [id number] B6 was developed and its performance characteristics determined by [facility]. It has not been cleared or approved by the Food and Drug Administration. Performed at: 01 - [address] [id number] Strategy Lead: Christiano Sol MD, Phone: [phone] Tavia Tang MD LAB BLOOD ORDERABLES Final Resu lt [facility] [address] [place] [address], [place] [phone] * Hemoglobin A1c (08/22/2024 10:58 AM EDT) Hemoglobin A1C 5.10 4.80 - 5.60 % 08/23/2024 12:43 AM EDT [facility] Blood Venipuncture / Unknown 08/22/2024 10:58 AM EDT 08/22/2024 10:58 AM EDT Narrative [facility] - 08/23/2024 12:43 AM EDT Hemoglobin A1C Ranges: Increased Risk for Diabetes 5.7% to 6.4% Diabetes >= 6.5% Diabetic Goal < 7.0% Tavia Tang MD LAB BLOOD ORDERABLES Final Resu lt Performing Organization Address [facility]/ZIP Co de Phone Number [facility]
[address] [place] [address], * Hepatitis Panel, Acute (04/26/2024 9:35 AM EDT) Hepatitis B Surface Ag Non-Reacti ve Non-Reacti ve 04/26/2024 2:55 PM EDT [facility] Hep A IgM Non-Reacti ve Non-Reacti ve 04/26/2024 2:55 PM EDT [facility] Hep B C IgM Non-Reacti ve Non-Reacti ve 04/26/2024 2:55 PM EDT [facility] Hepatitis C Ab Non-Reacti ve Non-Reacti ve 04/26/2024 2:55 PM EDT [facility] Blood Venipuncture / Unknown 04/26/2024 9:35 AM EDT 04/26/2024 9:36 AM EDT Narrative [facility] - 04/26/2024 2:55 PM EDT Results may be falsely decreased if patient taking Biotin. Talha Ardon DO LAB BLOOD ORDERABLES F inal Result Performing Organization Address [facility] Co de Phone Number [facility]
[address] [place] [address], from Last 3 Months or Most Recently Relevant to Health Maintenance Insurance [employer] Care Teams Director Game Relationship Specialty Start Date End Date Kailee Fenton APRN [facility] [address] [place] [address] PCP - General Internal Medicine 04/26/24
--- OUTSIDE RECORDS SUMMARY | 2024-10-19 09:43 | XMS_ITS | Encounter Summary ---
Author Organization [facility] Address [address] [place] [address] Care Team Providers Care Manager Home Name Role Phone EliceoKailee SOHAIL Primary Care Provider Encounter Details Date Type Department Care Team (Late st Contact Info) Description 04/26/2024 Results Follow-Up [facility] RHEUMATOLOGY [address] [address] Talha Ardon DO [address] [phone] Social History Tobacco Use Types Packs/Day Years Used Date Smoking Tobacco: Former Cigarettes 0.3 2 Smokeless Tobacco: Never Alcohol Use Standard Drinks/Week [...] Visit [facility] RHEUM[facility] [address] [address] Doug Moya APRN [address] [id number] 11/22/2024 2:15 PM EDT Office Visit [facility] [address] [facility] [address] [place] [address] Tavia Tang MD 210 [facility] [address] [place] [address] documented as of this encounter Visit Diagnoses Not on filedocumented in this encounter Care Teams Manager Home Relationship Specialty Start Date End Date Kailee Fenton APRN [facility] [place] [address] PCP - General Internal Medicine 04/26/24 documented as of this encounter
== END 2024-10-18 23:59 ==
LOC: LAB.DROPOF 10-19 09:37
PROVIDERS: PCP Nurse Practitioner Family; Visit Provider Nurse Practitioner Family
DX: M45.9 Ankylosing spondylitis of unspecified sites in spine (principal); G90.A Postural orthostatic tachycardia syndrome [POTS]
CPT/HCPCS: 80053; 82306; 83735; 84443; 85025; 86140